=== PATIENT | female | born 1995 | race Caucasian/White ===

== ENCOUNTER 2019-01-07 20:11 | Observation (INO) | payer OTHER ==
[2019-01-07 20:43] LABS: Appearance CLOUDY (CLEAR); Bacteria FEW /HPF (NEGATIVE); Bilirubin NEGATIVE (NEGATIVE); Blood SMALL Ery/ul (0-5); Epithelial Cells MODERATE /HPF (FEW); Glucose NEGATIVE (NEGATIVE); Ketones NEGATIVE (NEGATIVE); Leukocyte Esterase LARGE (NEGATIVE); Mucus SLIGHT /HPF (NEGATIVE); Nitrite NEGATIVE (NEGATIVE); Protein,Urine Dip 30 (Negative); RBC 26-50 /HPF (0-2); Specific Gravity 1.018 (1.005-1.025); Urobilinogen 2 mg/dL (0-1); WBC 51-100 /HPF (0-5)
[2019-01-07 20:54] LABS: Amphetamine,Urine NEGATIVE (NEGATIVE); Barbiturate,Urine NEGATIVE (NEGATIVE); Benzodiazepine,Urine NEGATIVE (NEGATIVE); Cocaine,Urine NEGATIVE (NEGATIVE); Methadone,Urine NEGATIVE (NEGATIVE); Opiate,Urine NEGATIVE (NEGATIVE); PCP,Urine NEGATIVE (NEGATIVE); THC,Urine NEGATIVE (NEGATIVE)
[2019-01-07] MEDS ORDERED: Lactated Ringers 1,000 ML IV ONE (22:23)
[2019-01-07] MEDS ORDERED: ROCEPHIN 1 Gm-D5w 50 ml Bag** 1 G/50 ML IVPB IV ONE (22:27)
[2019-01-07] MEDS: CLINDAMYCIN-D5W 600 MG/50 ML*** 600 MG/50 ML BAG IV SCH (22:51)
[2019-01-07 22:54] LABS: Hematocrit 31.2 % (35-47); Hemoglobin 9.7 gm/dl (12.0-16.0); Mean Cell Volume 80.2 fl (78-100); Mean Corpuscular Hemoglobin 24.9 pg (26-32); Mean Corpuscular Hgb Concent. 31.1 g/dl (32-36); Mean Platelet Volume 9.7 fl (6-9.5); Platelet Count 244 K/mm3 (150-450); Red Blood Count 3.89 M/mm3 (4.1-5.4); Red Cell Distribution Width 16.3 % (11.5-14.0); White Blood Count 10.3 K/mm3 (4.0-10.5)
[2019-01-07 23:46] LABS: ABO TYPING A; Antibody Screen NEGATIVE (NEGATIVE); RH TYPING POSITIVE
[2019-01-07 23:48] LABS: ALBUMIN 3.7 g/dL (3.5-5.0); ALKALINE PHOSPHATASE 116 U/L (38-126); ANION GAP 15.1 MEQ/L (5-15); BLOOD UREA NITROGEN 8 mg/dL (7-17); CHLORIDE 108 mmol/L (98-107); Carbon Dioxide 18 mmol/L (22-30); Creatinine 1 0.51 mg/dL (0.52-1.04); Glucose 102 mg/dL (74-106); Potassium 3.6 mmol/L (3.5-5.1); SGOT/AST 15 U/L (14-36); SGPT/ALT 13 U/L (0-35); SODIUM 137 mmol/L (137-145); Total Protein 6.7 g/dL (6.3-8.2)
[2019-01-08] MEDS: Lactated Ringers 1,000 ML IV SCH ×2 (00:10→11:45)
[2019-01-08] MEDS: TYLENOL 325 MG PO PRN ×3 (00:16→14:35)
[2019-01-08 01:04] LABS: Basophil 1 % (0.0-1.0); Eosinophil 3 % (0.00-3.0); Lymphocytes 20 % (24-44); Monocyte 3 % (0.0-12.0); Neutrophils 73 % (36.0-66.0); Total Cells Counted 100
[2019-01-08 01:05] LABS: ANISOCYTOSIS 2+; Platelet Estimate NORMAL (NORMAL); Poikilocytosis 1+
[2019-01-08] MEDS: CLINDAMYCIN-D5W 600 MG/50 ML*** 600 MG/50 ML BAG IV SCH ×2 (04:56→10:48)
[2019-01-08 05:21] LABS: CHLAMYDIA URINE NEGATIVE; GC URINE NEGATIVE
[2019-01-08] MEDS ORDERED: ROCEPHIN 1 Gm-D5w 50 ml Bag** 1 G/50 ML IVPB IV SCH (10:00)
[2019-01-08 11:30] VITALS: O2SAT 99
[2019-01-08 17:52] VITALS: BP 110/55; PULSE 95
--- NOTE | 2019-01-09 00:16 | XRAY ---
Indication: Bilateral leg pain. 34 weeks . Two-dimensional sonogram and color Doppler imaging of the major venous vessels of the left and right leg was performed. Comparison: None No thrombus seen in the examined deep venous vessels of the left and right leg including greater saphenous veins. Veins demonstrate normal compressibility. Venous waveforms are normal with and without augmentation. Impression: Left and right legs negative for DVT. Comment: Preliminary report was given.
[2019-01-10 13:05] LABS: Immune Status: Equivocal
[2019-01-11 14:07] LABS: RPR Screen Non Reactive (Non Reactive)
== END 2019-01-08 17:25 | disposition home or self-care (01) ==
LOC: UNDOADMOB 20:11 → OB 20:11 → UNDODISOB 01-08 17:25
PROVIDERS: ADMIT Family Medicine; ATTEND Family Medicine
DX: O98.913 Unspecified maternal infectious and parasitic disease complicating pregnancy, third trimester (principal); Z3A.34 34 weeks gestation of pregnancy; M79.662 Pain in left lower leg; M79.661 Pain in right lower leg
CPT/HCPCS: 36415; 80053; 80307; 81001; 82550; 84443; 85025; 86592; 86593; 86701; 86702; 86762; 86780; 86803; 86850; 86900; 86901; 87086; 87340; 87389; 87491; 87591; 93970; G0378; J0696; A9270-GY

== ENCOUNTER 2019-01-18 12:02 | Observation (INO) | payer OTHER ==
[2019-01-18 12:50] VITALS: BP 107/60; PULSE 66
[2019-01-18] MEDS ORDERED: Adacel Vial IM ONE (13:00)
--- NOTE | 2019-01-18 14:02 | XRAY ---
Indication: care. Two-dimensional OB ultrasound performed. Comparison: None There is a single viable intrauterine currently in cephalic presentation. Normal four-chamber heart with heart rate 133 BPM. Normal three-vessel cord and cord insertion. Visualized stomach, kidneys, and bladder unremarkable. Anterior placenta without abruption/previa. BPD measures 8.87 cm corresponding to 35 weeks 6 days. HC measures 31.68 cm corresponding to 35 weeks 4 days. AC measures 32.04 cm corresponding to 36 weeks 0 days. FL measures 6.84 cm corresponding to 35 weeks 1 day. JULIA is 11.3 cm. Impression: Single viable intrauterine with mean gestational age 35 weeks 5 days. Expected date confinement is February 17, 2019.
== END 2019-01-18 14:20 | disposition home or self-care (01) ==
LOC: OB 12:02
PROVIDERS: ADMIT Family Medicine; ATTEND Family Medicine
DX: Z34.83 Encounter for supervision of other normal pregnancy, third trimester (principal)
CPT/HCPCS: 59025; 76805; G0378; 90715

== ENCOUNTER 2019-01-28 15:37 | Observation (INO) | payer OTHER ==
[2019-01-28 16:33] LABS: Amphetamine,Urine NEGATIVE (NEGATIVE); Barbiturate,Urine NEGATIVE (NEGATIVE); Benzodiazepine,Urine NEGATIVE (NEGATIVE); Cocaine,Urine NEGATIVE (NEGATIVE); Methadone,Urine NEGATIVE (NEGATIVE); Opiate,Urine NEGATIVE (NEGATIVE); PCP,Urine NEGATIVE (NEGATIVE); THC,Urine NEGATIVE (NEGATIVE)
[2019-01-28 16:37] LABS: Appearance CLOUDY (CLEAR); Bacteria RARE /HPF (NEGATIVE); Bilirubin NEGATIVE (NEGATIVE); Blood NEGATIVE Ery/ul (0-5); Crystals Unidentified 25-50 /HPF (NEGATIVE); Epithelial Cells RARE /HPF (FEW); Glucose NEGATIVE (NEGATIVE); Ketones NEGATIVE (NEGATIVE); Leukocyte Esterase LARGE (NEGATIVE); Mucus SLIGHT /HPF (NEGATIVE); Nitrite NEGATIVE (NEGATIVE); Protein,Urine Dip NEGATIVE (Negative); RBC 0-2 /HPF (0-2); Specific Gravity 1.012 (1.005-1.025); Urobilinogen 2 mg/dL (0-1); WBC 26-50 /HPF (0-5)
[2019-01-28 18:19] VITALS: BP 116/59; PULSE 94
== END 2019-01-28 17:55 | disposition home or self-care (01) ==
LOC: OB 15:37
PROVIDERS: ADMIT Family Medicine; ATTEND Family Medicine
DX: Z34.83 Encounter for supervision of other normal pregnancy, third trimester (principal)
CPT/HCPCS: 80307; 81001; 87086; G0378

== ENCOUNTER 2019-02-07 16:10 | Observation (INO) | payer OTHER ==
[2019-02-07 16:49] VITALS: BP 111/71; PULSE 79
[2019-02-07 18:01] LABS: Amphetamine,Urine NEGATIVE (NEGATIVE); Barbiturate,Urine NEGATIVE (NEGATIVE); Benzodiazepine,Urine NEGATIVE (NEGATIVE); Cocaine,Urine NEGATIVE (NEGATIVE); Methadone,Urine NEGATIVE (NEGATIVE); Opiate,Urine NEGATIVE (NEGATIVE); PCP,Urine NEGATIVE (NEGATIVE); THC,Urine NEGATIVE (NEGATIVE)
== END 2019-02-07 17:20 | disposition home or self-care (01) ==
LOC: OB 16:10
PROVIDERS: ADMIT Family Medicine; ATTEND Family Medicine
DX: Z34.83 Encounter for supervision of other normal pregnancy, third trimester (principal)
CPT/HCPCS: 80307; 83986; G0378

== ENCOUNTER 2019-02-10 14:20 | Inpatient (IN) | payer OTHER ==
[2019-02-10 18:07] LABS: BASOPHIL % 0.3 % (0.0-0.4); Basophil (Absolute #) 0.02 (0-0.4); Eosinophil % 1.8 % (0.00-5.0); Eosinophil (Absolute #) 0.14 (0-0.5); Granulocyte Absolute (ANC) 5.76 (1.4-6.9); Granulocytes % 74.7 % (36.0-66.0); Hematocrit 30.6 % (35-47); Hemoglobin 9.2 gm/dl (12.0-16.0); Lymphocyte (Absolute #) 1.19 (1.0-4.6); Lymphocytes % 15.4 % (24.0-44.0); Mean Cell Volume 79.3 fl (78-100); Mean Corpuscular Hemoglobin 23.8 pg (26-32); Mean Corpuscular Hgb Concent. 30.1 g/dl (32-36); Mean Platelet Volume 9.3 fl (6-9.5); Monocytes % 7.8 % (0.0-12.0); Platelet Count 217 K/mm3 (150-450); Red Blood Count 3.86 M/mm3 (4.1-5.4); Red Cell Distribution Width 19.4 % (11.5-14.0); White Blood Count 7.7 K/mm3 (4.0-10.5)
[2019-02-10 21:45] LABS: ALBUMIN 3.4 g/dL (3.5-5.0); BLOOD UREA NITROGEN 8.2 mg/dL (7-17); CHLORIDE 107 mmol/L (98-107); Calcium 8.4 mg/dL (8.4-10.2); Glucose 79 mg/dL (74-106); SODIUM 137 mmol/L (137-145); Total Protein 5.9 g/dL (6.3-8.2)
[2019-02-10 21:46] LABS: ALKALINE PHOSPHATASE 137 U/L (38-126); ANION GAP 13 MEQ/L (5-15); BILIRUBIN,TOTAL 0.47 mg/dL (0.2-1.3); SGOT/AST 23 U/L (14-36); SGPT/ALT 9 U/L (0-35)
[2019-02-10] MEDS ORDERED: BRETHINE 1 MG/ML SQ PRN (22:35)
[2019-02-10] MEDS ORDERED: TYLENOL EXTRA STRENGTH 500 MG PO PRN (22:36)
[2019-02-10] MEDS ORDERED: XYLOCAINE 1% HCL 20 ML MDV IJ PRN (22:36)
[2019-02-10] MEDS ORDERED: Zofran 4 MG/2 ML VIAL IV PRN (22:36)
[2019-02-10] MEDS: Lactated Ringers 1,000 ML IV SCH (23:47)
[2019-02-11 11:16] LABS: Amphetamine,Urine NEGATIVE (NEGATIVE); Barbiturate,Urine NEGATIVE (NEGATIVE); Benzodiazepine,Urine NEGATIVE (NEGATIVE); Cocaine,Urine NEGATIVE (NEGATIVE); Methadone,Urine NEGATIVE (NEGATIVE); Opiate,Urine NEGATIVE (NEGATIVE); PCP,Urine NEGATIVE (NEGATIVE); THC,Urine NEGATIVE (NEGATIVE)
[2019-02-11] MEDS: PITOCIN 30 UNITS/ LR 500 ML 500 ML IV SCH (12:27)
[2019-02-11] MEDS: Lactated Ringers 1,000 ML IV SCH ×2 (12:27→20:10)
[2019-02-11] MEDS ORDERED: Cervidil 10 MG VAG SCH (22:00)
[2019-02-11] MEDS: KEFLEX 500 MG PO SCH (22:17)
[2019-02-12] MEDS ORDERED: FERROUS SULFATE 324 MG PO SCH (10:00)
[2019-02-12] MEDS ORDERED: NON-FORMULARY ITEM (Pnv No.103/Folic/Om3s/Fish Oil [Prenatal Gummies] 1 TAB) PO SCH (10:00)
[2019-02-12] MEDS: KEFLEX 500 MG PO SCH (11:54)
[2019-02-12] MEDS: PITOCIN 30 UNITS/ LR 500 ML 500 ML IV SCH (12:09)
[2019-02-12] MEDS: FEOSOL 325 MG PO SCH (12:21)
[2019-02-12] MEDS: THERAGRAN MULTIVITAMIN PO SCH (12:21)
[2019-02-12] MEDS ORDERED: Ephedrine Sulfate 50 MG/ML IV PRN (14:57)
[2019-02-12] MEDS ORDERED: OB EPIDURAL NAROPIN/SUFENTANIL IN NACL EPIDURAL PRN (14:57)
[2019-02-12] MEDS ORDERED: Lactated Ringers 1,000 ML IV ONE (14:57)
[2019-02-12 15:13] LABS: Hematocrit 31.7 % (35-47); Hemoglobin 9.6 gm/dl (12.0-16.0); Mean Cell Volume 78.9 fl (78-100); Mean Corpuscular Hemoglobin 23.8 pg (26-32); Mean Corpuscular Hgb Concent. 30.3 g/dl (32-36); Mean Platelet Volume 9.1 fl (6-9.5); Platelet Count 211 K/mm3 (150-450); Red Blood Count 4.02 M/mm3 (4.1-5.4); Red Cell Distribution Width 19.6 % (11.5-14.0)
[2019-02-12] MEDS ORDERED: Mylicon 80MG PO PRN (17:13)
[2019-02-12] MEDS ORDERED: Ambien 10 MG PO PRN (17:13)
[2019-02-12] MEDS ORDERED: Dulcolax 10 MG SUPP PR PRN (17:13)
[2019-02-12] MEDS ORDERED: TYLENOL EXTRA STRENGTH 500 MG PO PRN (17:13)
[2019-02-12] MEDS ORDERED: Anucort-HC SUPPOSITORY PR PRN (17:13)
[2019-02-12] MEDS ORDERED: CORTISONE 1% CREAM TP PRN (17:13)
[2019-02-12] MEDS ORDERED: LANSINOH 40 GM TOP PRN (17:13)
[2019-02-12] MEDS ORDERED: ROCEPHIN 1 Gm-D5w 50 ml Bag** 1 G/50 ML IVPB IV SCH (18:00)
[2019-02-12] MEDS: MOTRIN 400 MG PO PRN (18:10)
[2019-02-12] MEDS ORDERED: Dermoplast Spray ONE (22:04)
[2019-02-12] MEDS: TUCKS TP PRN (22:10)
[2019-02-12] MEDS: Dermoplast Spray TP PRN (22:10)
[2019-02-12] MEDS: NORCO 5/325 MG PO PRN (22:21)
[2019-02-12] MEDS: Colace 100 MG PO SCH (22:21)
[2019-02-12] MEDS: Lactated Ringers 1,000 ML IV SCH (23:39)
[2019-02-13] MEDS: MOTRIN 400 MG PO PRN (01:10)
[2019-02-13] MEDS: NORCO 5/325 MG PO PRN ×4 (02:20→21:09)
[2019-02-13 06:05] LABS: INR 0.97 (0.8-3.0); PROTIME 11.3 SECONDS (9.95-12.35)
[2019-02-13 06:08] LABS: PTT 23.7 SECONDS (25.3-37.0)
[2019-02-13 06:11] LABS: BASOPHIL % 0.2 % (0.0-0.4); Basophil (Absolute #) 0.02 (0-0.4); Eosinophil % 1.3 % (0.00-5.0); Eosinophil (Absolute #) 0.14 (0-0.5); Granulocyte Absolute (ANC) 7.63 (1.4-6.9); Granulocytes % 70.5 % (36.0-66.0); Hemoglobin 8.3 gm/dl (12.0-16.0); Lymphocyte (Absolute #) 2.17 (1.0-4.6); Mean Cell Volume 78.9 fl (78-100); Mean Corpuscular Hgb Concent. 29.6 g/dl (32-36); Mean Platelet Volume 9.7 fl (6-9.5); Monocyte (Absolute #) 0.87 (0.0-1.3); Platelet Count 217 K/mm3 (150-450); Red Blood Count 3.55 M/mm3 (4.1-5.4); Red Cell Distribution Width 19.3 % (11.5-14.0); White Blood Count 10.8 K/mm3 (4.0-10.5)
[2019-02-13 06:15] LABS: Mean Corpuscular Hemoglobin 23.3 pg (26-32)
[2019-02-13] MEDS ORDERED: Reglan 10 MG/2 ML IV ONE (07:30)
[2019-02-13] MEDS ORDERED: Pepcid 20 MG VIAL IV ONE (07:30)
[2019-02-13] MEDS ORDERED: Sensorcaine 0.25% 10 ML ONE (07:51)
[2019-02-13] MEDS ORDERED: Lactated Ringers 1,000 ML IV ONE (07:51)
[2019-02-13] MEDS: BICITRA 30 ML CUP PO ONE ×2 (07:55→08:19)
[2019-02-13] MEDS ORDERED: Adacel Vial IM ONE (08:00)
[2019-02-13] MEDS ORDERED: M-M-R II Vaccine With Diluent SQ ONE (09:00)
[2019-02-13] MEDS ORDERED: Zofran 4 MG/2 ML VIAL ONE (09:14)
[2019-02-13] MEDS ORDERED: SUBLIMAZE 100 MCG/2 ML ONE (09:14)
[2019-02-13] MEDS ORDERED: FERREX 150 PO SCH (10:00)
[2019-02-13] MEDS: Colace 100 MG PO SCH ×2 (13:56→21:09)
[2019-02-13] MEDS: FEOSOL 325 MG PO SCH (13:56)
[2019-02-13] MEDS: THERAGRAN MULTIVITAMIN PO SCH (13:57)
[2019-02-13] MEDS: Dermoplast Spray TP PRN (21:05)
[2019-02-13] MEDS: KEFLEX 500 MG PO SCH ×2 (21:56→21:57)
[2019-02-14] MEDS: NORCO 5/325 MG PO PRN ×2 (01:28→06:00)
--- NOTE | 2019-02-14 07:38 | PCM.DS ---
Discharge Summary Date of Admission: 02/12/19 14:20 Admitting Physician: TAIWO GUZMAN Consults: Consults on Case 02/12/19 17:15 Notify Physician ROUTINE Primary Care Provider: TAIWO GUZMAN Allergies Allergies avocado Allergy (Verified 02/10/19 17:40) coconut Allergy (Verified 02/10/19 17:40) latex Allergy (Verified 02/10/19 17:40) mushroom Allergy (Verified 02/10/19 17:40) Penicillins Allergy (Verified 02/10/19 17:40) Hospital Summary - Hospital Course Hospital Course: Pt was admitted as 23 yo at 38w 3d for induction of labor. She was late to care at approx 32 weeks. Urine drug screens have been negative. She had a history of post- hemorrhage and Hgb of 9.3 - when her u/s last week showed EFW of 9lb 4oz, the decision was made by me to send for induction of labor due to increased risk of PP hemorrhage with macrosomia. Pt received cervadil overnight then pitocin the next day, with no real cervical change. the next night she received 2 doses of cervical cytotec then started pitocin; after that I was able to rupture the amniotic sac and she progressed quickly, delivering vaginally within the next 3 hours. She delivered a vigorous 8lb 12oz baby boy (for full details, see my delivery note). The next morning pt had a tubal ligation with Dr. Joseph. Pt has recovered well. Breast feeding. She will be discharged to home with her baby at 48h PP. - Vitals & Intake/Output Vital Signs: Vital Signs Temperature 97.7 F 02/14/19 02:00 Pulse Rate 80 02/14/19 02:00 Respiratory Rate 18 02/13/19 12:15 Blood Pressure 119/69 02/14/19 02:00 O2 Sat by Pulse Oximetry Intake & Output: Intake & Output 02/11/19 02/12/19 02/13/19 02/14/19 11:59 11:59 11:59 11:59 Intake Total 1250 3975 5700 800 Balance 1250 3975 5700 800 Weight 65.771 kg 78.471 kg - Lab Result Diagrams: 02/13/19 05:10 02/10/19 18:03 Discharge Exam General Appearance: no apparent distress, alert Neurologic Exam: oriented x 3, cooperative, other (pat refl 2+ bilat) Skin Exam: normal color, warm, dry, No rash Ears, Nose, Throat Exam: moist mucous membranes Neck Exam: normal inspection Respiratory Exam: normal breath sounds, lungs clear, No crackles/rales, No rhonchi, No wheezing Cardiovascular Exam: regular rate/rhythm, normal heart sounds Gastrointestinal/Abdomen Exam: soft, normal bowel sounds, No tenderness, No distention, No mass, No guarding, No rebound Extremity Exam: normal inspection, pedal edema (trace) Back Exam: normal inspection, No rash Final Diagnosis/Problem List - Final Discharge Diagnosis/Problem (1) Status post vaginal delivery Current Visit: Yes Status: Acute Assessment & Plan: Home today at 48h pp. (2) Anemia Current Visit: Yes Status: Acute Assessment & Plan: resume home Fe Code(s): D64.9 - ANEMIA, UNSPECIFIED - Discharge Disposition: Home, Self-Care Condition: Good Prescriptions: New Cephalexin Mh 500 mg [Keflex 500 mg] 500 mg PO QID capsule Hydrocodone/APAP 5-325 Tab^^^ [Whitney 5-325 Tablet^^^] 1 tab PO Q6HPRN PRN # 30 tablet MDD 6 PRN Reason: Pain Continue Pnv No.103/Folic/Om3s/Fish Oil [ Gummies] 1 tab PO DAILY Ferrous Sulfate 324 mg PO DAILY Follow up with: TAIWO GUZMAN [Primary Care Provider] - 1 Week
[2019-02-14] MEDS: KEFLEX 500 MG PO SCH (09:52)
[2019-02-14] MEDS: Colace 100 MG PO SCH (09:52)
[2019-02-14] MEDS: THERAGRAN MULTIVITAMIN PO SCH (09:52)
[2019-02-14] MEDS: FEOSOL 325 MG PO SCH (09:52)
--- NOTE | 2019-02-14 09:53 | OP ---
SURGERY DATE: 02/13/2019818 PREOPERATIVE DIAGNOSIS: Undesired fertility. POSTOPERATIVE DIAGNOSIS: Undesired fertility. PROCEDURE: Bilateral tubal ligation by partial salpingectomy. SURGEON: Dr. Joseph. ANESTHESIA: General. ESTIMATED BLOOD LOSS: Minimal. HISTORY: The patient is a 23 year-old 4, now para 4 white female who desires to have permanent sterilization procedure performed. She was appraised the risk of the procedure including risk of wound infection, bleeding and the failure rate of the tubal procedure of 1:300. The patient verbalized her understanding and desired to have the procedure performed. DESCRIPTION OF PROCEDURE AND FINDINGS: The patient was given general anesthesia. She was prepped and draped in supine position. The area was anesthetized using local anesthetic. An incision was made in supraumbilical area in horizontal fashion to approximately 1 inch in length. The incision was carried down to the fascia which was then elevated with Debbie clamp and divided. The peritoneal cavity was then bluntly entered. The right fallopian tube was identified and elevated in its mid portion with Daylin clamp and carried out to its fimbriated end. A hemostat is passed through an avascular section of the mesosalpinx and tube is tied on either side of the elevated area. The interceding section was then excised. The exposed edge of the tube cauterized using Bovie. The left tube is similarly treated. The fascia is then repaired using 0 Vicryl suture in a running fashion. The skin edges were reapproximated with 4-0 Vicryl suture in subcuticular fashion and reinforced with Steri-Strips. The sponge, needle and instrument counts were reported as correct at the end of the procedure. The patient is taken back to the recovery room in good condition.
[2019-02-14] MEDS: TUCKS TP PRN (10:41)
[2019-02-14] MEDS ORDERED: TORAdol 30 mg Injection IJ ONE (11:24)
[2019-02-14] MEDS ORDERED: Zofran 4 MG/2 ML VIAL IV ONE (11:24)
[2019-02-14] MEDS ORDERED: Quelicin Fliptop 200 MG/10 ML IJ ONE (11:24)
[2019-02-14] MEDS ORDERED: Decadron 4 MG INJ IV ONE (11:24)
[2019-02-14] MEDS ORDERED: DIPRIVAN 200 MG/20 ML IV ONE (11:24)
[2019-02-14] MEDS ORDERED: SUBLIMAZE 100 MCG/2 ML IV ONE (11:24)
[2019-02-14 11:50] VITALS: BP 111/64; PULSE 84
== END 2019-02-14 11:25 | disposition home or self-care (01) | DRG 798 ==
LOC: OB 14:20 → EEVIPCON 17:06 → OB 17:06 → OBSVTOIN 02-12 14:20
PROVIDERS: ADMIT Family Medicine; ATTEND Family Medicine
PROC: 10E0XZZ Delivery of Products of Conception, External Approach (ICD-10-PCS; principal; 2019-02-12)
PROC: 0UB70ZZ Excision of Bilateral Fallopian Tubes, Open Approach (ICD-10-PCS; 2019-02-13)
DX: O71.4 Obstetric high vaginal laceration alone (principal); Z37.0 Single live birth; O99.02 Anemia complicating childbirth; O69.81X0 Labor and delivery complicated by cord around neck, without compression, not applicable or unspecified; O66.0 Obstructed labor due to shoulder dystocia; Z3A.38 38 weeks gestation of pregnancy; Z30.2 Encounter for sterilization
CPT/HCPCS: 36415; 59025; 76805; 80053; 80307; 82962; 83036; 85025; 85027; 85610; 85730; 87081; 88302; 90707; 90715; 96372; G0378; J0330; J0696; J1100; J1885; J2405; J2590; J2704; J3010; A9270-GY

== ENCOUNTER 2019-04-29 12:31 | Emergency (ER) | payer OTHER ==
[2019-04-29 12:53] VITALS: BP 120/71; PULSE 74; O2SAT 98
--- NOTE | 2019-04-29 13:06 | ERPHSYRPT ---
- History of Present Illness Time Seen by Provider: 04/29/19 12:50 Source: patient Exam Limitations: clinical condition Patient Subjective Stated Complaint: pain to the top of her left hadn x 2 weeks. no known injury. hurts to use her hand. Triage Nursing Assessment: in no distress. pain to top of the left hand x 2 weeks. no known injury. + radial pulse present. no swelling noted. states hurts to use the hand. denies palmar pain. Physician History: PATIENT COMPLAINS OF PAIN OVER THE BACK OF HIS LEFT HAND FOR 2 WEEKS. DENIES HISTORY OF TRAUMA OR INJURY. HAS LEFT WRIST PAIN AFTER LIFTING FURNITURE LAST WEEK. DENIES FALL, INJURY OR TRAUMA. DENIES NUMBNESS, SWELLING OF HAND, WRIST OR DIGITS. Occurred: other (WEEKS AGO) Method of Injury: other Quality: constant, sharpness Severity of Pain-Max: mild Severity of Pain-Current: mild Extremities Pain Location: wrist: left, hand: left Modifying Factors: Improves With: movement Associated Symptoms: none Allergies/Adverse Reactions: avocado Allergy (Verified 02/10/19 17:40) coconut Allergy (Verified 02/10/19 17:40) latex Allergy (Verified 02/10/19 17:40) mushroom Allergy (Verified 02/10/19 17:40) Penicillins Allergy (Verified 02/10/19 17:40) Home Medications: Pnv No.103/Folic/Om3s/Fish Oil [ Gummies] 1 tab PO DAILY 01/07/19 [ History] Ferrous Sulfate 324 mg PO DAILY 01/28/19 [History] - Review of Systems Constitutional: No Symptoms Musculoskeletal: Joint Pain - Past Medical History Pertinent Past Medical History: Yes Neurological History: No Pertinent History ENT History: No Pertinent History Cardiac History: No Pertinent History Respiratory History: No Pertinent History Endocrine Medical History: No Pertinent History Musculoskeletal History: No Pertinent History GI Medical History: No Pertinent History History: No Pertinent History Psycho-Social History: No Pertinent History Female Reproductive Disorders: No Pertinent History - Past Surgical History Past Surgical History: Yes (appe) Neuro Surgical History: No Pertinent History Cardiac: No Pertinent History Respiratory: No Pertinent History Gastrointestinal: Appendectomy Genitourinary: No Pertinent History Musculoskeletal: No Pertinent History Female Surgical History: No Pertinent History - Social History Smoking Status: Never smoker How long have you smoked: on and off Exposure to second hand smoke: No Drug Use: none Patient Lives Alone: No - Female History Hx Now: No - Nursing Vital Signs Nursing Vital Signs: Initial Vital Signs Temperature 97.8 F 04/29/19 12:43 Pulse Rate 74 04/29/19 12:43 Respiratory Rate 18 04/29/19 12:43 Blood Pressure 120/71 04/29/19 12:43 O2 Sat by Pulse Oximetry 98 04/29/19 12:43 Pain Scale Pain Intensity 5 - Physical Exam General Appearance: no apparent distress Wrist Exam: normal inspection, limited ROM (DUE TO ULNAR AND RADIAL DEVIATION, NO SWELLING OR WARMTH) Hand Exam: normal inspection, normal ROM (OF DIGITS, TENDERNESS OVER MID TO DISTAL 3RD TO 4TH METACARPALS, NO SWELLING, CREPITUS OR ECCHYMOSIS), abrasions SpO2 Interpretation: normal SpO2: 98 Ordered Tests: Active Orders 24 hr Category Date Time Status Splint STAT Care 04/29/19 12:59 Ordered - Progress Progress Note: 04/29/19 13:06 DISCUSSED WITH PATIENT NO INDICATION FOR X-RAYS DUE TO NO HISTORY OF TRAUMA, APPLICATION LEFT WRIST VELCRO SPLINT Counseled pt/family regarding: diagnosis, need for follow-up - Departure Departure Disposition: Home Clinical Impression: TENDONITIS LEFT WRIST Condition: Stable Critical Care Time: No Referrals: TAIWO GUZMAN [Primary Care Provider] - Additional Instructions: WEAR VELCRO LEFT WRIST SPLINT FOR 7 DAYS THEN DISCONTINUE. MAY REMOVE SPLINT FOR BATHING. MOTRIN 600MG EVERY 6 HOURS FOR PAIN NEEDED. CONSULT YOUR PRIMARY CARE PROVIDER FOR FOLLOWUP. Prescriptions: Ibuprofen 600 mg PO Q6HPRN PRN #20 tablet PRN Reason: Pain
== END 2019-04-29 13:41 | disposition home or self-care (01) ==
LOC: ED 12:31
DX: M77.9 Enthesopathy, unspecified (principal); M25.532 Pain in left wrist; M79.642 Pain in left hand; X50.0XXA Overexertion from strenuous movement or load, initial encounter
CPT/HCPCS: 99283; L3908

== ENCOUNTER 2019-11-14 14:51 | Emergency (ER) | payer OTHER ==
[2019-11-14] MEDS ORDERED: KEFLEX 500 MG PO ONE (15:03)
[2019-11-14] MEDS ORDERED: KEFLEX 500 MG ONE (15:07)
--- NOTE | 2019-11-14 15:09 | ERPHSYRPT ---
- History of Present Illness Time Seen by Provider: 11/14/19 15:00 Source: patient Exam Limitations: no limitations Physician History: 24 y/o white female presents with right upper dental pain and mild facial swelling in same area. pt has chronic dental issues. pt states she does not have much pain. she does not want any narcotics. pt has taken keflex(cephalexin ) in the past without any problems. Timing/Duration: intermittent, yesterday Severity: mild Prearrival Treatment: no prearrival treatment Associated Symptoms: facial pain/swelling (mild ), tooth pain Allergies/Adverse Reactions: avocado Allergy (Verified 11/14/19 14:59) coconut Allergy (Verified 11/14/19 14:59) latex Allergy (Verified 11/14/19 14:59) mushroom Allergy (Verified 11/14/19 14:59) Penicillins Allergy (Verified 11/14/19 14:59) Home Medications: PARoxetine HCl [Paroxetine HCl] 10 mg PO DAILY 11/14/19 [History] - Review of Systems Constitutional: No Symptoms Eyes: No Symptoms Ears, Nose, & Throat: Other (dental) Respiratory: No Symptoms Cardiac: No Symptoms Abdominal/Gastrointestinal: No Symptoms Genitourinary Symptoms: No Symptoms Musculoskeletal: No Symptoms Skin: No Symptoms Neurological: No Symptoms Psychological: No Symptoms Endocrine: No Symptoms Hematologic/Lymphatic: No Symptoms Immunological/Allergic: No Symptoms All Other Systems: Reviewed and Negative - Past Medical History Pertinent Past Medical History: Yes Neurological History: No Pertinent History ENT History: No Pertinent History Cardiac History: No Pertinent History Respiratory History: No Pertinent History Endocrine Medical History: No Pertinent History Musculoskeletal History: No Pertinent History GI Medical History: No Pertinent History History: No Pertinent History Psycho-Social History: No Pertinent History Female Reproductive Disorders: No Pertinent History - Past Surgical History Past Surgical History: Yes (appe) Neuro Surgical History: No Pertinent History Cardiac: No Pertinent History Respiratory: No Pertinent History Gastrointestinal: Appendectomy Genitourinary: No Pertinent History Musculoskeletal: No Pertinent History Female Surgical History: No Pertinent History - Social History Smoking Status: Never smoker How long have you smoked: on and off Exposure to second hand smoke: No Drug Use: none Patient Lives Alone: No - Physical Exam General Appearance: no apparent distress, alert, anxiety Eye Exam: bilateral eye: normal inspection, PERRL, EOMI Ear Exam: bilateral ear: auricle normal Nasal Exam: normal inspection Throat Exam: normal, pharynx normal, dental tenderness, moist mucus membranes Neck Exam: normal inspection, non-tender, supple, full range of motion Cardiovascular/Respiratory Exam: chest non-tender Abdominal Exam: non-tender Neurologic Exam: alert, oriented x 3, cooperative, cork insulator II-XII nml as tested Skin Exam: normal color, warm, dry SpO2 Interpretation: normal O2 Delivery: Room Air - Course Nursing assessment & vital signs reviewed: Yes Ordered Tests: Medication Summary Generic Name Dose Route Start Last Admin Trade Name Freq PRN Reason Stop Dose Admin Cephalexin HCl 500 mg 11/14/19 15:03 Keflex 500 Mg PO 11/14/19 15:04 STAT ONE - Progress Progress: unchanged Counseled pt/family regarding: diagnosis, need for follow-up - Departure Departure Disposition: Home Clinical Impression: Pain, dental Condition: Stable Critical Care Time: No Referrals: TAIWO GUZMAN [Primary Care Provider] - Additional Instructions: tylenol and ibuprofen for pain. follow up with dentist at scheduled appointment Prescriptions: Cephalexin Mh 500 mg [Keflex 500 mg] 500 mg PO TID #21 capsule
[2019-11-14 15:30] VITALS: BP 99/64; PULSE 76; O2SAT 98
== END 2019-11-14 15:31 | disposition home or self-care (01) ==
LOC: ED 14:51
DX: K08.89 Other specified disorders of teeth and supporting structures (principal)
CPT/HCPCS: 99283; A9270-GY

== ENCOUNTER 2020-05-31 10:03 | Emergency (ER) | payer OTHER ==
[2020-05-31] MEDS ORDERED: Sodium Chloride 0.9% 1000 ML 1,000 ML IV STA (10:23)
[2020-05-31 10:31] LABS: BASOPHIL % 0.5 % (0.0-0.4); Basophil (Absolute #) 0.03 (0-0.4); Eosinophil % 2.9 % (0.00-5.0); Eosinophil (Absolute #) 0.17 (0-0.5); Hematocrit 35.1 % (35-47); Hemoglobin 11.2 gm/dl (12.0-16.0); Lymphocyte (Absolute #) 2.18 (1.0-4.6); Lymphocytes % 37.7 % (24.0-44.0); Mean Cell Volume 83.2 fl (78-100); Mean Corpuscular Hemoglobin 26.5 pg (26-32); Mean Corpuscular Hgb Concent. 31.9 g/dl (32-36); Mean Platelet Volume 10.2 fl (7.5-11.0); Monocyte (Absolute #) 0.61 (0.0-1.3); Monocytes % 10.5 % (0.0-12.0); Neutrophil % 48.4 % (36.0-66.0); Platelet Count 245 K/mm3 (150-450); Red Blood Count 4.22 M/mm3 (4.1-5.4); White Blood Count 5.8 K/mm3 (4.0-10.5)
[2020-05-31] MEDS ORDERED: Sodium Chloride 0.9% 1000 ML 1,000 ML ONE (10:31)
[2020-05-31 10:46] LABS: ALKALINE PHOSPHATASE 48 U/L (38-126); ANION GAP 11.6 MEQ/L (5-15); BLOOD UREA NITROGEN 10 mg/dL (7-17); CHLORIDE 107 mmol/L (98-107); Calcium 8.7 mg/dL (8.4-10.2); Carbon Dioxide 23 mmol/L (22-30); Creatinine 1 0.81 mg/dL (0.52-1.04); Glucose 107 mg/dL (74-106); Potassium 3.7 mmol/L (3.5-5.1); SGOT/AST 18 U/L (14-36); SGPT/ALT 12 U/L (0-35); SODIUM 138 mmol/L (137-145); Total Protein 6.6 g/dL (6.3-8.2)
[2020-05-31 10:54] LABS: Appearance SLIGHTLY CLOUDY (CLEAR); Bacteria RARE /HPF (NEGATIVE); Bilirubin NEGATIVE (NEGATIVE); Blood NEGATIVE Ery/ul (0-5); Epithelial Cells RARE /HPF (FEW); Glucose NEGATIVE (NEGATIVE); Ketones NEGATIVE (NEGATIVE); Leukocyte Esterase LARGE (NEGATIVE); Mucus SLIGHT /HPF (NEGATIVE); Nitrite NEGATIVE (NEGATIVE); Protein,Urine Dip NEGATIVE (Negative); RBC 0-2 /HPF (0-2); Specific Gravity 1.005 (1.005-1.025); Urobilinogen NEGATIVE mg/dL (0-1)
[2020-05-31 11:15] VITALS: PULSE 62
--- NOTE | 2020-05-31 11:22 | XRAY ---
Indication: Lightheaded. Syncope. Comparison: October 13, 2019. Portable chest again demonstrates normal heart, lungs, and bony thorax.
--- NOTE | 2020-05-31 12:00 | ERPHSYRPT ---
- History of Present Illness Time Seen by Provider: 05/31/20 10:18 Source: patient Exam Limitations: no limitations Patient Subjective Stated Complaint: pt reports passing out at home approx one hour [employer]. pt reprots she has passed out before due to her anemia. pt denies in juring herself, denies pain at this time. pt states that she has been working a lot more lately and thinks that may be a contributing factor. Triage Nursing Assessment: pt is aox3, pupils perrl, afebrile, resps easy and non labored, cap refill < 3 seconds, radial pulses strong and equal, pt skin pink warm dry. pt ambulatory to trt room with no difficulties. Physician History: 25 years old female with history of anemia on iron tablets presented in the ER with chief complaint of near syncopal episode almost an hour prior to arrival. Patient reports she was working at home while standing, felt all of a sudden lightheaded with feeling as if she was going to pass out and falling, her grabbed her with loss of consciousness for a few seconds. No seizure- like activity noticed. Improved with lying down. Since patient denies any chest pain palpitations or shortness of breath, numbness tingling or weakness before or after the episode. She is complaining of generalized weakness and fatigue. No fever or chills reported. Patient reports she has been working too much lately which could be contributing to her symptoms. Timing/Duration: today, sudden, improved Severity: mild Associated Symptoms: denies symptoms, syncope, weakness Allergies/Adverse Reactions: avocado Allergy (Verified 05/31/20 10:23) coconut Allergy (Verified 05/31/20 10:23) latex Allergy (Verified 05/31/20 10:25) Hives mushroom Allergy (Verified 05/31/20 10:23) Penicillins Allergy (Verified 05/31/20 10:25) Vomiting Home Medications: Iron 18 mg PO DAILY 05/31/20 [History] Hx Tetanus, Diphtheria Vaccination/Date Given: Yes Hx Influenza Vaccination/Date Given: Yes Hx Pneumococcal Vaccination/Date Given: No Immunizations Up to Date: Yes Travel Risk - International Travel Have you traveled outside of the country in past 3 weeks: No - Coronavirus Screening Are you exhibiting any of the following symptoms?: No Close contact with a COVID-19 positive Pt in past 14-21 Days: No - Review of Systems Constitutional: Fatigue, Weakness Eyes: No Symptoms Ears, Nose, & Throat: No Symptoms Respiratory: No Symptoms Cardiac: No Symptoms Abdominal/Gastrointestinal: No Symptoms Genitourinary Symptoms: No Symptoms Musculoskeletal: No Symptoms Skin: No Symptoms Neurological: Dizziness Psychological: Anxiety Endocrine: No Symptoms Hematologic/Lymphatic: No Symptoms Immunological/Allergic: No Symptoms - Past Medical History Pertinent Past Medical History: Yes Neurological History: No Pertinent History ENT History: No Pertinent History Cardiac History: No Pertinent History Respiratory History: No Pertinent History Endocrine Medical History: No Pertinent History Musculoskeletal History: No Pertinent History GI Medical History: No Pertinent History History: No Pertinent History Psycho-Social History: No Pertinent History Female Reproductive Disorders: No Pertinent History Other Medical History: anemia - Past Surgical History Past Surgical History: Yes Neuro Surgical History: No Pertinent History Cardiac: No Pertinent History Respiratory: No Pertinent History Gastrointestinal: Appendectomy Genitourinary: No Pertinent History Musculoskeletal: No Pertinent History Female Surgical History: No Pertinent History, Tubal Ligation - Social History Smoking Status: Current every day smoker How long have you smoked: on and off Exposure to second hand smoke: No Drug Use: none Patient Lives Alone: No - Female History Hx Last Menstrual Period: 05/24/20 Hx Now: (unkn) - Nursing Vital Signs Nursing Vital Signs: Initial Vital Signs Temperature 97.8 F 05/31/20 10:13 Pulse Rate 81 05/31/20 10:13 Respiratory Rate 18 05/31/20 10:13 Blood Pressure 116/68 05/31/20 10:13 O2 Sat by Pulse Oximetry 99 05/31/20 10:13 Pain Scale Pain Intensity 0 - Physical Exam General Appearance: no apparent distress Eye Exam: PERRL/EOMI, eyes nml inspection Ears, Nose, Throat Exam: normal ENT inspection, TMs normal, pharynx normal Neck Exam: normal inspection, non-tender, supple, full range of motion Respiratory Exam: normal breath sounds, lungs clear Cardiovascular Exam: regular rate/rhythm, normal heart sounds Gastrointestinal/Abdomen Exam: soft, normal bowel sounds, No tenderness Extremity Exam: normal inspection, normal range of motion, pelvis stable Neurologic Exam: alert, oriented x 3, cooperative, 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, nml cerebellar function, nml station & gait, sensation nml, No motor weakness Skin Exam: normal color SpO2 Interpretation: normal SpO2: 97 O2 Delivery: Room Air - Course Nursing assessment & vital signs reviewed: Yes EKG Interpreted by Me: RATE (75), Sinus Rhythm, NORMAL AXIS, NORMAL INTERVALS, NORMAL QRS Ordered Tests: Active Orders 24 hr Category Date Time Status EKG-ER Only STAT Care 05/31/20 10:23 Completed IV Insertion STAT Care 05/31/20 10:23 Completed Orthostatic Vital Signs STAT Care 05/31/20 10:25 Completed CHEST 1 VIEW (PORTABLE) Stat Exams 05/31/20 10:24 Completed CBC W DIFF Stat Lab 05/31/20 10:29 Completed CMP Stat Lab 05/31/20 10:29 Completed HCG,QUALITATIVE URINE Stat Lab 05/31/20 10:30 Completed TROPONIN Q3H Lab 05/31/20 10:29 Completed TROPONIN Q3H Lab 05/31/20 13:30 Ordered TROPONIN Q3H Lab 05/31/20 16:30 Ordered TROPONIN Q3H Lab 05/31/20 19:30 Ordered TROPONIN Q3H Lab 05/31/20 22:30 Ordered UA W/RFX UR CULTURE Stat Lab 05/31/20 10:30 Completed Medication Summary Discontinued Medications Generic Name Dose Route Start Last Admin Trade Name Freq PRN Reason Stop Dose Admin Sodium Chloride 1,000 mls @ 999 mls/hr 05/31/20 10:23 05/31/20 12:06 Sodium Chloride 0.9% 1000 Ml IV 05/31/20 11:23 Infused .Q1H1M STA Infusion Sodium Chloride Confirm 05/31/20 10:31 Sodium Chloride 0.9% 1000 Ml Administered 05/31/20 10:32 Dose 1,000 mls @ ud .ROUTE .[facility] Lab/Rad Data: Laboratory Result Diagrams 05/31/20 10:29 05/31/20 10:29 Laboratory Results 05/31/20 05/31/20 05/31/20 Range/Units 10:30 10:30 10:29 WBC (4.0-10.5) K/mm3 RBC (4.1-5.4) M/mm3 Hgb (12.0-16.0) gm/dl Hct (35-47) % MCV (78-100) fl MCH (26-32) pg MCHC (32-36) g/dl RDW (11.5-14.0) % Plt Count (150-450) K/mm3 MPV (7.5-11.0) fl Gran % (36.0-66.0) % Eos # (Auto) (0-0.5) Absolute Lymphs (auto) (1.0-4.6) Absolute Monos (auto) (0.0-1.3) Lymphocytes % (24.0-44.0) % Monocytes % (0.0-12.0) % Eosinophils % (0.00-5.0) % Basophils % (0.0-0.4) % Absolute Granulocytes (1.4-6.9) Basophils # (0-0.4) Sodium (137-145) mmol/L Potassium (3.5-5.1) mmol/L Chloride (98-107) mmol/L Carbon Dioxide (22-30) mmol/L Anion Gap (5-15) MEQ/L BUN (7-17) mg/dL Creatinine (0.52-1.04) mg/dL Estimated GFR ML/MIN Glucose (74-106) mg/dL Calcium (8.4-10.2) mg/dL Total Bilirubin (0.2-1.3) mg/dL AST (14-36) U/L ALT (0-35) U/L Alkaline Phosphatase (38-126) U/L Troponin I < 0.012 (0.000-0.034) ng/mL Serum Total Protein (6.3-8.2) g/dL Albumin (3.5-5.0) g/dL Urine Color YELLOW (YELLOW) Urine Appearance SLIGHTLY CLOUDY (CLEAR) Urine pH 6.0 (5-6) Ur Specific [place] 1.005 (1.005-1.025) Urine Protein NEGATIVE (Negative) Urine Ketones NEGATIVE (NEGATIVE) Urine Blood NEGATIVE (0-5) Ghulam/ul Urine Nitrite NEGATIVE (NEGATIVE) Urine Bilirubin NEGATIVE (NEGATIVE) Urine Urobilinogen NEGATIVE (0-1) mg/dL Ur Leukocyte Esterase LARGE (NEGATIVE) Urine WBC (Auto) 3-5 (0-5) /HPF Urine RBC (Auto) 0-2 (0-2) /HPF U Epithel Cells (Auto) RARE (FEW) /HPF Urine Bacteria (Auto) RARE (NEGATIVE) /HPF Urine Mucus (Auto) SLIGHT (NEGATIVE) /HPF Urine Culture Reflexed NO (NO) Urine Glucose NEGATIVE (NEGATIVE) mg/dL Urine HCG, Qual NEGATIVE (Negative) 05/31/20 05/31/20 Range/Units 10:29 10:29 WBC 5.8 (4.0-10.5) K/mm3 RBC 4.22 (4.1-5.4) M/mm3 Hgb 11.2 L (12.0-16.0) gm/dl Hct 35.1 (35-47) % MCV 83.2 (78-100) fl MCH 26.5 (26-32) pg MCHC 31.9 L (32-36) g/dl RDW 15.0 H (11.5-14.0) % Plt Count 245 (150-450) K/mm3 MPV 10.2 (7.5-11.0) fl Gran % 48.4 (36.0-66.0) % Eos # (Auto) 0.17 (0-0.5) Absolute Lymphs (auto) 2.18 (1.0-4.6) Absolute Monos (auto) 0.61 (0.0-1.3) Lymphocytes % 37.7 (24.0-44.0) % Monocytes % 10.5 (0.0-12.0) % Eosinophils % 2.9 (0.00-5.0) % Basophils % 0.5 (0.0-0.4) % Absolute Granulocytes 2.80 (1.4-6.9) Basophils # 0.03 (0-0.4) Sodium 138 (137-145) mmol/L Potassium 3.7 (3.5-5.1) mmol/L Chloride 107 (98-107) mmol/L Carbon Dioxide 23 (22-30) mmol/L Anion Gap 11.6 (5-15) MEQ/L BUN 10 (7-17) mg/dL Creatinine 0.81 (0.52-1.04) mg/dL Estimated GFR > 60.0 ML/MIN Glucose 107 H (74-106) mg/dL Calcium 8.7 (8.4-10.2) mg/dL Total Bilirubin 0.60 (0.2-1.3) mg/dL AST 18 (14-36) U/L ALT 12 (0-35) U/L Alkaline Phosphatase 48 (38-126) U/L Troponin I (0.000-0.034) ng/mL Serum Total Protein 6.6 (6.3-8.2) g/dL Albumin 4.0 (3.5-5.0) g/dL Urine Color (YELLOW) Urine Appearance (CLEAR) Urine pH (5-6) Ur Specific [place] (1.005-1.025) Urine Protein (Negative) Urine Ketones (NEGATIVE) Urine Blood (0-5) Ghulam/ul Urine Nitrite (NEGATIVE) Urine Bilirubin (NEGATIVE) Urine Urobilinogen (0-1) mg/dL Ur Leukocyte Esterase (NEGATIVE) Urine WBC (Auto) (0-5) /HPF Urine RBC (Auto) (0-2) /HPF U Epithel Cells (Auto) (FEW) /HPF Urine Bacteria (Auto) (NEGATIVE) /HPF Urine Mucus (Auto) (NEGATIVE) /HPF Urine Culture Reflexed (NO) Urine Glucose (NEGATIVE) mg/dL Urine HCG, Qual (Negative) - Progress Progress: improved, re-examined Progress Note: She was given fluid bolus. Nonfocal neuro exam throughout stay in the ER. Symptoms seem more secondary to posture related lightheadedness/near syncopal episode. Do not think needs a CT head or any other neuro work-up. EKG normal sinus rhythm with no acute ischemic changes or arrhythmia/PVCs/PACs. Grossly unremarkable chemistries. Hemoglobin of 11. Patient feeling better on reevaluation after fluid. I do not think she needs further work-up in the ER and is stable for discharge with outpatient follow-up. Discussed signs symptoms of worsening needing return to ER she seems understanding. Counseled pt/family regarding: lab results, diagnosis, need for follow-up, rad results - Departure Departure Disposition: Home Clinical Impression: Postural dizziness with near syncope, Generalized weakness Condition: Stable Critical Care Time: No Referrals: TAIWO GUZMAN [Primary Care Provider] - (1-2 days for reevaluation.) Instructions: Syncope (Fainting) (DC) Additional Instructions: Drink plenty of fluids. Follow-up with your primary care physician for reevaluation. Return to ER for any worsening.
[2020-05-31 12:07] VITALS: BP 118/67
[2020-05-31 12:21] VITALS: O2SAT 97
== END 2020-05-31 12:08 | disposition home or self-care (01) ==
LOC: ED 10:03
DX: R42 Dizziness and giddiness (principal); R55 Syncope and collapse; R53.1 Weakness
CPT/HCPCS: 36000; 36415; 71045; 80053; 81001; 84484; 84703; 85025; 93005; 96360; 99284

== ENCOUNTER 2021-08-14 15:30 | Observation (INO) | payer OTHER ==
--- NOTE | 2021-08-14 15:31 | ERPHSYRPT ---
- History of Present Illness Time Seen by Provider: 08/14/21 15:31 Source: patient Exam Limitations: no limitations Physician History: This is a 26-year-old white female who states that she was feeling fine 3 days ago. However 2 days ago she began having a cough, mild sore throat, mild shortness of breath body aches, vomiting and diarrhea. The symptoms have worsened over the last 2 days. She is not taking much oral intake per her report. She does not have chest pain. She does not have abdominal pain. Patient has not knowingly been exposed anyone with any type of viral illness or other type of contagious illness. She has not measured her temperature at home but she has at times felt feverish. Timing/Duration: day(s) (2), worse Severity: moderate Associated Symptoms: vomiting, shortness of breath, cough, chills, fever, headaches, loss of appetite, weakness, No abdominal pain, No chest pain Allergies/Adverse Reactions: avocado Allergy (Verified 08/14/21 16:04) coconut Allergy (Verified 08/14/21 16:04) latex Allergy (Verified 08/14/21 16:04) Hives mushroom Allergy (Verified 08/14/21 16:04) Penicillins Allergy (Verified 08/14/21 16:04) Vomiting Hx Tetanus, Diphtheria Vaccination/Date Given: Yes Hx Influenza Vaccination/Date Given: Yes Hx Pneumococcal Vaccination/Date Given: No Travel Risk - International Travel Have you traveled outside of the country in past 3 weeks: No - Coronavirus Screening Are you exhibiting any of the following symptoms?: Yes Symptoms: Fever, Cough: New Onset, Shortness of Breath, Vomiting/Diarrhea, Head aches/Body Aches/Fatigue Close contact with a COVID-19 positive Pt in past 14-21 Days: No - Review of Systems Constitutional: Fever, Weakness Eyes: No Symptoms Ears, Nose, & Throat: Throat Pain Respiratory: Cough, Dyspnea Cardiac: No Symptoms Abdominal/Gastrointestinal: Nausea, Vomiting, Diarrhea, Appetite Changes, No Abdominal Pain Genitourinary Symptoms: No Symptoms Musculoskeletal: Arthralgias, Myalgias Skin: No Symptoms Neurological: No Symptoms Psychological: No Symptoms Endocrine: No Symptoms Hematologic/Lymphatic: No Symptoms Immunological/Allergic: No Symptoms All Other Systems: Reviewed and Negative - Past Medical History Pertinent Past Medical History: Yes Neurological History: No Pertinent History ENT History: No Pertinent History Cardiac History: No Pertinent History Respiratory History: No Pertinent History Endocrine Medical History: No Pertinent History Musculoskeletal History: No Pertinent History GI Medical History: No Pertinent History History: No Pertinent History Psycho-Social History: No Pertinent History Female Reproductive Disorders: No Pertinent History Other Medical History: anemia - Past Surgical History Past Surgical History: Yes Neuro Surgical History: No Pertinent History Cardiac: No Pertinent History Respiratory: No Pertinent History Gastrointestinal: Appendectomy Genitourinary: No Pertinent History Musculoskeletal: No Pertinent History Female Surgical History: No Pertinent History, Tubal Ligation - Social History Smoking Status: Current every day smoker How long have you smoked: on and off Exposure to second hand smoke: No Drug Use: none Patient Lives Alone: No - Nursing Vital Signs Nursing Vital Signs: Initial Vital Signs Temperature 99.9 F 08/14/21 15:48 Pulse Rate 115 H 08/14/21 15:48 Respiratory Rate 16 08/14/21 15:48 Blood Pressure 114/77 08/14/21 15:48 O2 Sat by Pulse Oximetry 98 08/14/21 15:48 Pain Scale Pain Intensity 6 - Physical Exam General Appearance: mild distress, alert, anxiety Eye Exam: PERRL/EOMI, eyes nml inspection Ears, Nose, Throat Exam: normal ENT inspection, moist mucous membranes Neck Exam: normal inspection, non-tender, supple, full range of motion Respiratory Exam: normal breath sounds, lungs clear, respiratory distress, airway intact, No chest tenderness Cardiovascular Exam: normal peripheral pulses, tachycardia Gastrointestinal/Abdomen Exam: soft, normal bowel sounds, No tenderness Pelvic Exam: not done Rectal Exam: not done Back Exam: normal inspection, normal range of motion, No CVA tenderness, No vertebral tenderness Extremity Exam: normal inspection, normal range of motion, pelvis stable Neurologic Exam: alert, oriented x 3, cooperative, emergency department technician II-XII nml as tested, normal mood/affect, nml cerebellar function, nml station & gait, sensation nml Skin Exam: normal color, warm, dry Lymphatic Exam: No adenopathy SpO2 Interpretation: normal O2 Delivery: Room Air - Course Nursing assessment & vital signs reviewed: Yes EKG Interpreted by Me: RATE (101), Sinus Tach, NORMAL AXIS, NORMAL INTERVALS, NORMAL QRS, NORMAL ST-T, Other (No acute ischemic changes on today's EKG. There is new sinus tachycardia present on today's EKG when compared to EKG dated 05/31/2020.) Ordered Tests: Active Orders 24 hr Category Date Time Status EKG-ER Only STAT Care 08/14/21 15:54 Active IV Insertion STAT Care 08/14/21 15:54 Active Isolation, Initiate & Maintain STAT Care 08/14/21 15:54 Active CHEST 1 VIEW (PORTABLE) Stat Exams 08/14/21 15:54 Completed CHEST WITH CONTRAST [CT] Stat Exams 08/14/21 17:34 Taken BLOOD CULTURE Stat Lab 08/14/21 16:20 Received CBC W DIFF Stat Lab 08/14/21 15:54 Completed CMP Stat Lab 08/14/21 16:11 Completed CULTURE,URINE Stat Lab 08/14/21 18:24 Received D-DIMER QUANTITATIVE Stat Lab 08/14/21 16:11 Completed Ferritin Stat Lab 08/14/21 16:11 Completed HCG,QUALITATIVE URINE Stat Lab 08/14/21 16:18 Completed INFLUENZA A+B DEL Stat Lab 08/14/21 16:18 Completed LDH-LACTATE DEHYDROGENASE Stat Lab 08/14/21 16:11 Completed Lactic Acid Stat Lab 08/14/21 16:11 Completed Manual Differential NC Stat Lab 08/14/21 15:54 Completed [place] Screen Stat Lab 08/14/21 16:11 Completed TROPONIN Q3H Lab 08/14/21 16:11 Completed TROPONIN Q3H Lab 08/14/21 19:00 Ordered TROPONIN Q3H Lab 08/14/21 22:00 Ordered TROPONIN Q3H Lab 08/15/21 01:00 Ordered TROPONIN Q3H Lab 08/15/21 04:00 Ordered UA W/RFX UR CULTURE Stat Lab 08/14/21 18:24 Completed Transfer Order Routine Transfer 08/14/21 Ordered Medication Summary Generic Name Dose Route Start Last Admin Trade Name Freq PRN Reason Stop Dose Admin Levofloxacin/Dextrose 500 mg in 100 mls @ 100 mls/hr 08/14/21 18:45 08/14/21 18:49 Levofloxacin 500mg/100ml D5w IV 08/14/21 19:44 100 mls/hr STAT ONE Administration Sodium Chloride 1,000 mls @ 100 mls/hr 08/14/21 19:15 08/14/21 19:09 Sodium Chloride 0.9% 1000 Ml IV 09/13/21 19:14 100 mls/hr .Q10H RADHA Administration Discontinued Medications Generic Name Dose Route Start Last Admin Trade Name Bel PRN Reason Stop Dose Admin Hydrocodone Bitart/Acetaminophen 10 ml 08/14/21 15:56 08/14/21 16:33 Hydrocodone-Acetamin 2.5-108/5 Ml Solution PO 08/14/21 15:57 10 ml STAT STA Administration Hydrocodone Bitart/Acetaminophen Confirm 08/14/21 16:28 Hydrocodone-Acetamin 2.5-108/5 Ml Solution Administered 08/14/21 16:29 Dose 10 ml .ROUTE .STK-MED ONE Dexamethasone Sodium Phosphate 8 mg 08/14/21 15:56 08/14/21 16:33 Decadron 10mg Inj. IV 08/14/21 15:57 8 mg STAT ONE Administration Dexamethasone Sodium Phosphate Confirm 08/14/21 16:28 Decadron 10mg Inj. Administered 08/14/21 16:29 Dose 10 mg .ROUTE .STK-MED ONE Sodium Chloride 1,000 mls @ 999 mls/hr 08/14/21 15:54 08/14/21 17:36 Sodium Chloride 0.9% 1000 Ml IV 08/14/21 16:54 Infused .Q1H1M STA Infusion Sodium Chloride Confirm 08/14/21 16:28 Sodium Chloride 0.9% 1000 Ml Administered 08/14/21 16:29 Dose 1,000 mls @ ud .ROUTE .STK-MED ONE Sodium Chloride 1,000 mls @ 999 mls/hr 08/14/21 17:35 08/14/21 18:41 Sodium Chloride 0.9% 1000 Ml IV 08/14/21 18:35 Infused .Q1H1M STA Infusion Sodium Chloride Confirm 08/14/21 17:38 Sodium Chloride 0.9% 1000 Ml Administered 08/14/21 17:39 Dose 1,000 mls @ ud .ROUTE .STK-MED ONE Levofloxacin/Dextrose Confirm 08/14/21 18:47 Levofloxacin 500mg/100ml D5w Administered 08/14/21 18:48 Dose 500 mg in 100 mls @ ud IV .STK-MED ONE Ondansetron HCl Confirm 08/14/21 16:28 Zofran 4 Mg/2 Ml Vial Administered 08/14/21 16:29 Dose 4 mg .ROUTE .STK-MED ONE Ondansetron HCl 4 mg 08/14/21 16:32 08/14/21 16:33 Zofran 4 Mg/2 Ml Vial IV 08/14/21 16:33 4 mg STAT ONE Administration Potassium Chloride 10 meq 08/14/21 17:34 08/14/21 17:40 Klor Con 10 Meq PO 08/14/21 17:35 10 meq STAT ONE Administration Potassium Chloride Confirm 08/14/21 17:38 Klor Con 10 Meq Administered 08/14/21 17:39 Dose 10 meq PO .STK-MED ONE Lab/Rad Data: Laboratory Result Diagrams 08/14/21 15:54 08/14/21 16:11 Laboratory Results 08/14/21 08/14/21 08/14/21 Range/Units 18:24 16:18 16:17 WBC (4.0-10.5) K/mm3 RBC (4.1-5.4) M/mm3 Hgb (12.0-16.0) gm/dl Hct (35-47) % MCV (78-100) fl MCH (26-32) pg MCHC (32-36) g/dl RDW (11.5-14.0) % Plt Count (150-450) K/mm3 MPV (7.5-11.0) fl Segmented Neutrophils (36.0-66.0) % Band Neutrophils (0.0-2.0) % Lymphocytes (Manual) (24-44) % Monocytes (Manual) (0.0-12.0) % Basophils (Manual) (0.0-1.0) % Hypochromia Platelet Estimate (NORMAL) RBC Morphology Poikilocytosis Ovalocytes D-Dimer (215-500) ng/mL Sodium (137-145) mmol/L Potassium (3.5-5.1) mmol/L Chloride (98-107) mmol/L Carbon Dioxide (22-30) mmol/L Anion Gap (5-15) MEQ/L BUN (7-17) mg/dL Creatinine (0.52-1.04) mg/dL Estimated GFR ML/MIN Glucose (74-106) mg/dL Lactic Acid (0.4-2.0) Calcium (8.4-10.2) mg/dL Ferritin (6.24-137) ng/mL Total Bilirubin (0.2-1.3) mg/dL AST (14-36) U/L ALT (0-35) U/L Alkaline Phosphatase (38-126) U/L Lactate Dehydrogenase (120-246) U/L Troponin I (0.000-0.034) ng/mL Serum Total Protein (6.3-8.2) g/dL Albumin (3.5-5.0) g/dL Urine Color YELLOW (YELLOW) Urine Appearance SLIGHTLY CLOUDY (CLEAR) Urine pH 6.0 (5-6) Ur Specific [place] 1.009 (1.005-1.025) Urine Protein 30 (Negative) Urine Ketones SMALL (NEGATIVE) Urine Blood SMALL (0-5) Ghulam/ul Urine Nitrite POSITIVE (NEGATIVE) Urine Bilirubin NEGATIVE (NEGATIVE) Urine Urobilinogen 2 (0-1) mg/dL Ur Leukocyte Esterase MODERATE (NEGATIVE) Urine WBC (Auto) 26-50 (0-5) /HPF Urine RBC (Auto) 0-2 (0-2) /HPF U Epithel Cells (Auto) RARE (FEW) /HPF Urine Bacteria (Auto) MANY (NEGATIVE) /HPF Urine Mucus (Auto) SLIGHT (NEGATIVE) /HPF Urine Culture Reflexed YES (NO) Urine Glucose NEGATIVE (NEGATIVE) mg/dL Urine HCG, Qual NEGATIVE (Negative) Monoscreen (Negative) Influenza Type A Ag NEGATIVE (NEGATIVE) Influenza Type B Ag NEGATIVE (NEGATIVE) Group A Strep Antibody NOT DETECTED (NEGATIVE) 08/14/21 08/14/21 08/14/21 Range/Units 16:11 16:11 16:11 WBC (4.0-10.5) K/mm3 RBC (4.1-5.4) M/mm3 Hgb (12.0-16.0) gm/dl Hct (35-47) % MCV (78-100) fl MCH (26-32) pg MCHC (32-36) g/dl RDW (11.5-14.0) % Plt Count (150-450) K/mm3 MPV (7.5-11.0) fl Segmented Neutrophils (36.0-66.0) % Band Neutrophils (0.0-2.0) % Lymphocytes (Manual) (24-44) % Monocytes (Manual) (0.0-12.0) % Basophils (Manual) (0.0-1.0) % Hypochromia Platelet Estimate (NORMAL) RBC Morphology Poikilocytosis Ovalocytes D-Dimer (215-500) ng/mL Sodium (137-145) mmol/L Potassium (3.5-5.1) mmol/L Chloride (98-107) mmol/L Carbon Dioxide (22-30) mmol/L Anion Gap (5-15) MEQ/L BUN (7-17) mg/dL Creatinine (0.52-1.04) mg/dL Estimated GFR ML/MIN Glucose (74-106) mg/dL Lactic Acid (0.4-2.0) Calcium (8.4-10.2) mg/dL Ferritin 40.8 (6.24-137) ng/mL Total Bilirubin (0.2-1.3) mg/dL AST (14-36) U/L ALT (0-35) U/L Alkaline Phosphatase (38-126) U/L Lactate Dehydrogenase (120-246) U/L Troponin I < 0.012 (0.000-0.034) ng/mL Serum Total Protein (6.3-8.2) g/dL Albumin (3.5-5.0) g/dL Urine Color (YELLOW) Urine Appearance (CLEAR) Urine pH (5-6) Ur Specific [place] (1.005-1.025) Urine Protein (Negative) Urine Ketones (NEGATIVE) Urine Blood (0-5) Ghulam/ul Urine Nitrite (NEGATIVE) Urine Bilirubin (NEGATIVE) Urine Urobilinogen (0-1) mg/dL Ur Leukocyte Esterase (NEGATIVE) Urine WBC (Auto) (0-5) /HPF Urine RBC (Auto) (0-2) /HPF U Epithel Cells (Auto) (FEW) /HPF Urine Bacteria (Auto) (NEGATIVE) /HPF Urine Mucus (Auto) (NEGATIVE) /HPF Urine Culture Reflexed (NO) Urine Glucose (NEGATIVE) mg/dL Urine HCG, Qual (Negative) Monoscreen NEGATIVE (Negative) Influenza Type A Ag (NEGATIVE) Influenza Type B Ag (NEGATIVE) Group A Strep Antibody (NEGATIVE) 08/14/21 08/14/21 08/14/21 Range/Units 16:11 16:11 16:11 WBC (4.0-10.5) K/mm3 RBC (4.1-5.4) M/mm3 Hgb (12.0-16.0) gm/dl Hct (35-47) % MCV (78-100) fl MCH (26-32) pg MCHC (32-36) g/dl RDW (11.5-14.0) % Plt Count (150-450) K/mm3 MPV (7.5-11.0) fl Segmented Neutrophils (36.0-66.0) % Band Neutrophils (0.0-2.0) % Lymphocytes (Manual) (24-44) % Monocytes (Manual) (0.0-12.0) % Basophils (Manual) (0.0-1.0) % Hypochromia Platelet Estimate (NORMAL) RBC Morphology Poikilocytosis Ovalocytes D-Dimer 1863 H* (215-500) ng/mL Sodium 129 L (137-145) mmol/L Potassium 3.3 L (3.5-5.1) mmol/L Chloride 98 (98-107) mmol/L Carbon Dioxide 20 L (22-30) mmol/L Anion Gap 13.6 (5-15) MEQ/L BUN 13 (7-17) mg/dL Creatinine 0.89 (0.52-1.04) mg/dL Estimated GFR > 60.0 ML/MIN Glucose 105 (74-106) mg/dL Lactic Acid 0.8 (0.4-2.0) Calcium 8.8 (8.4-10.2) mg/dL Ferritin (6.24-137) ng/mL Total Bilirubin 1.10 (0.2-1.3) mg/dL AST 63 H (14-36) U/L ALT 54 H (0-35) U/L Alkaline Phosphatase 81 (38-126) U/L Lactate Dehydrogenase 183 (120-246) U/L Troponin I (0.000-0.034) ng/mL Serum Total Protein 6.9 (6.3-8.2) g/dL Albumin 4.0 (3.5-5.0) g/dL Urine Color (YELLOW) Urine Appearance (CLEAR) Urine pH (5-6) Ur Specific [place] (1.005-1.025) Urine Protein (Negative) Urine Ketones (NEGATIVE) Urine Blood (0-5) Ghulam/ul Urine Nitrite (NEGATIVE) Urine Bilirubin (NEGATIVE) Urine Urobilinogen (0-1) mg/dL Ur Leukocyte Esterase (NEGATIVE) Urine WBC (Auto) (0-5) /HPF Urine RBC (Auto) (0-2) /HPF U Epithel Cells (Auto) (FEW) /HPF Urine Bacteria (Auto) (NEGATIVE) /HPF Urine Mucus (Auto) (NEGATIVE) /HPF Urine Culture Reflexed (NO) Urine Glucose (NEGATIVE) mg/dL Urine HCG, Qual (Negative) Monoscreen (Negative) Influenza Type A Ag (NEGATIVE) Influenza Type B Ag (NEGATIVE) Group A Strep Antibody (NEGATIVE) 08/14/21 Range/Units 15:54 WBC 14.3 H (4.0-10.5) K/mm3 RBC 4.09 L (4.1-5.4) M/mm3 Hgb 8.2 L (12.0-16.0) gm/dl Hct 27.2 L (35-47) % MCV 66.5 L (78-100) fl MCH 20.0 L (26-32) pg MCHC 30.1 L (32-36) g/dl RDW 17.8 H (11.5-14.0) % Plt Count 209 (150-450) K/mm3 MPV 10.4 (7.5-11.0) fl Segmented Neutrophils 89 H (36.0-66.0) % Band Neutrophils 3 H (0.0-2.0) % Lymphocytes (Manual) 3 L (24-44) % Monocytes (Manual) 4 (0.0-12.0) % Basophils (Manual) 1 (0.0-1.0) % Hypochromia 1+ Platelet Estimate NORMAL (NORMAL) RBC Morphology ABNORMAL Poikilocytosis 2+ Ovalocytes 1+ D-Dimer (215-500) ng/mL Sodium (137-145) mmol/L Potassium (3.5-5.1) mmol/L Chloride (98-107) mmol/L Carbon Dioxide (22-30) mmol/L Anion Gap (5-15) MEQ/L BUN (7-17) mg/dL Creatinine (0.52-1.04) mg/dL Estimated GFR ML/MIN Glucose (74-106) mg/dL Lactic Acid (0.4-2.0) Calcium (8.4-10.2) mg/dL Ferritin (6.24-137) ng/mL Total Bilirubin (0.2-1.3) mg/dL AST (14-36) U/L ALT (0-35) U/L Alkaline Phosphatase (38-126) U/L Lactate Dehydrogenase (120-246) U/L Troponin I (0.000-0.034) ng/mL Serum Total Protein (6.3-8.2) g/dL Albumin (3.5-5.0) g/dL Urine Color (YELLOW) Urine Appearance (CLEAR) Urine pH (5-6) Ur Specific [place] (1.005-1.025) Urine Protein (Negative) Urine Ketones (NEGATIVE) Urine Blood (0-5) Ghulam/ul Urine Nitrite (NEGATIVE) Urine Bilirubin (NEGATIVE) Urine Urobilinogen (0-1) mg/dL Ur Leukocyte Esterase (NEGATIVE) Urine WBC (Auto) (0-5) /HPF Urine RBC (Auto) (0-2) /HPF U Epithel Cells (Auto) (FEW) /HPF Urine Bacteria (Auto) (NEGATIVE) /HPF Urine Mucus (Auto) (NEGATIVE) /HPF Urine Culture Reflexed (NO) Urine Glucose (NEGATIVE) mg/dL Urine HCG, Qual (Negative) Monoscreen (Negative) Influenza Type A Ag (NEGATIVE) Influenza Type B Ag (NEGATIVE) Group A Strep Antibody (NEGATIVE) - Progress Progress: improved Progress Note: 08/14/21 17:20 Chest x-ray shows no acute cardiopulmonary process. Discussed with : Ursula Counseled pt/family regarding: lab results, diagnosis, rad results - Departure Departure Disposition: Observation Clinical Impression: Weakness, Dizziness, Mild dehydration, Leukocytosis, Anemia, Hyponatremia, Hypokalemia, UTI (urinary tract infection) Condition: Stable Critical Care Time: No Referrals: TAIWO LANE [Primary Care Provider] -
[2021-08-14] MEDS ORDERED: Sodium Chloride 0.9% 1000 ML 1,000 ML IV STA ×2 (15:54→17:35)
[2021-08-14] MEDS ORDERED: DECADRON 10MG INJ. IV ONE (15:56)
[2021-08-14] MEDS ORDERED: HYDROCODONE-ACETAMIN 2.5-108/5 ML SOLUTION PO STA (15:56)
[2021-08-14 16:27] LABS: Hematocrit 27.2 % (35-47); Hemoglobin 8.2 gm/dl (12.0-16.0); Mean Cell Volume 66.5 fl (78-100); Mean Corpuscular Hgb Concent. 30.1 g/dl (32-36); Mean Platelet Volume 10.4 fl (7.5-11.0); Platelet Count 209 K/mm3 (150-450); Red Blood Count 4.09 M/mm3 (4.1-5.4); Red Cell Distribution Width 17.8 % (11.5-14.0); White Blood Count 14.3 K/mm3 (4.0-10.5)
[2021-08-14] MEDS ORDERED: HYDROCODONE-ACETAMIN 2.5-108/5 ML SOLUTION ONE (16:28)
[2021-08-14] MEDS ORDERED: DECADRON 10MG INJ. ONE (16:28)
[2021-08-14] MEDS ORDERED: Sodium Chloride 0.9% 1000 ML 1,000 ML ONE ×3 (16:28→19:08)
[2021-08-14] MEDS ORDERED: Zofran 4 MG/2 ML VIAL ONE (16:28)
[2021-08-14] MEDS ORDERED: Zofran 4 MG/2 ML VIAL IV ONE (16:32)
[2021-08-14 16:47] LABS: ALKALINE PHOSPHATASE 81 U/L (38-126); ANION GAP 13.6 MEQ/L (5-15); BLOOD UREA NITROGEN 13 mg/dL (7-17); CHLORIDE 98 mmol/L (98-107); Calcium 8.8 mg/dL (8.4-10.2); Carbon Dioxide 20 mmol/L (22-30); Creatinine 1 0.89 mg/dL (0.52-1.04); EST GLOMERULAR FILTRATION RATE > 60.0 ML/MIN; Glucose 105 mg/dL (74-106); LDH-LACTATE DEHYDROGENASE 183 U/L (120-246); Potassium 3.3 mmol/L (3.5-5.1); SGOT/AST 63 U/L (14-36); SGPT/ALT 54 U/L (0-35); SODIUM 129 mmol/L (137-145); Total Protein 6.9 g/dL (6.3-8.2)
[2021-08-14 17:07] LABS: INFLUENZA A NEGATIVE (NEGATIVE); INFLUENZA B NEGATIVE (NEGATIVE)
--- NOTE | 2021-08-14 17:09 | XRAY ---
Exam: AP upright portable chest film from 08/14/2021. Comparison: AP upright portable chest film from 05/31/2020. Indication: 26-year-old female with cough; fever. Findings: There has been a good inspiratory effort. The heart size is normal. The nathan and mediastinal structures appear unremarkable. No air space infiltrates or groundglass opacities are seen. The pulmonary vascularity is normal. No pneumothorax or pleural effusion is seen. No acute osseous process is seen. Impression: 1. No acute cardiopulmonary disease is seen, no change from 05/31/2020.
[2021-08-14] MEDS ORDERED: Klor Con 10 MEQ PO ONE ×2 (17:34→17:38)
[2021-08-14 17:57] LABS: BAND 3 % (0.0-2.0); Basophil 1 % (0.0-1.0); Lymphocytes 3 % (24-44); Monocyte 4 % (0.0-12.0); Neutrophils 89 % (36.0-66.0); Total Cells Counted 100
[2021-08-14 17:58] LABS: Ovalocytes 1+; Platelet Estimate NORMAL (NORMAL); Poikilocytosis 2+
[2021-08-14 17:59] LABS: Hypochromia 1+
[2021-08-14 18:35] LABS: HCG,QUALITATIVE URINE NEGATIVE (Negative)
[2021-08-14 18:38] LABS: Appearance SLIGHTLY CLOUDY (CLEAR); Bacteria MANY /HPF (NEGATIVE); Bilirubin NEGATIVE (NEGATIVE); Blood SMALL Ery/ul (0-5); Epithelial Cells RARE /HPF (FEW); Glucose NEGATIVE (NEGATIVE); Ketones SMALL (NEGATIVE); Leukocyte Esterase MODERATE (NEGATIVE); Mucus SLIGHT /HPF (NEGATIVE); Nitrite POSITIVE (NEGATIVE); Protein,Urine Dip 30 (Negative); RBC 0-2 /HPF (0-2); Specific Gravity 1.009 (1.005-1.025); Urobilinogen 2 mg/dL (0-1); WBC 26-50 /HPF (0-5)
[2021-08-14] MEDS ORDERED: Levofloxacin 500MG/100ML D5W 500 MG/100 ML BAG IV ONE ×2 (18:45→18:47)
[2021-08-14] MEDS ORDERED: Sodium Chloride 0.9% 1000 ML 1,000 ML IV SCH (19:15)
[2021-08-15] MEDS: TYLENOL 325 MG PO PRN ×2 (01:06→09:32)
[2021-08-15] MEDS: Sodium Chloride 0.9% 1000 ML 1,000 ML IV SCH ×3 (04:53→22:55)
[2021-08-15 05:28] LABS: Absolute Neutrophil Ct (ANC) 6.99 (1.4-6.9); BASOPHIL % 0.1 % (0.0-0.4); Basophil (Absolute #) 0.01 (0-0.4); Eosinophil (Absolute #) 0 (0-0.5); Hematocrit 25.8 % (35-47); Hemoglobin 7.7 gm/dl (12.0-16.0); Lymphocyte (Absolute #) 0.57 (1.0-4.6); Lymphocytes % 7.2 % (24.0-44.0); Mean Cell Volume 67.4 fl (78-100); Mean Corpuscular Hemoglobin 20.1 pg (26-32); Mean Corpuscular Hgb Concent. 29.8 g/dl (32-36); Monocyte (Absolute #) 0.32 (0.0-1.3); Monocytes % 4.1 % (0.0-12.0); Neutrophil % 88.6 % (36.0-66.0); Platelet Count 208 K/mm3 (150-450); Red Blood Count 3.83 M/mm3 (4.1-5.4); Red Cell Distribution Width 18.1 % (11.5-14.0); White Blood Count 7.9 K/mm3 (4.0-10.5)
[2021-08-15 05:59] LABS: ALBUMIN 3.6 g/dL (3.5-5.0); ALKALINE PHOSPHATASE 47 U/L (38-126); ANION GAP 12.3 MEQ/L (5-15); BLOOD UREA NITROGEN 14 mg/dL (7-17); CHLORIDE 108 mmol/L (98-107); Calcium 8.4 mg/dL (8.4-10.2); Carbon Dioxide 20 mmol/L (22-30); Creatinine 1 0.68 mg/dL (0.52-1.04); EST GLOMERULAR FILTRATION RATE > 60.0 ML/MIN; Glucose 121 mg/dL (74-106); Potassium 4.1 mmol/L (3.5-5.1); SGOT/AST 28 U/L (14-36); SGPT/ALT 41 U/L (0-35); SODIUM 136 mmol/L (137-145); Total Protein 6.5 g/dL (6.3-8.2)
[2021-08-15 06:54] LABS: Slide Review 1 YES
--- NOTE | 2021-08-15 08:57 | PCM.HP ---
History of Present Illness - Chief Complaint Chief Complaint: UTI History of Present Illness: is a 26 year old female pt of mine from [facility] who was admitted through ER with anemia and UTI. She had been sick for about a week with NUÑEZ, bilat lower leg pain, weakness/dizziness and question of syncope. She was driving back from [place] last week and had to stop x 3 and not sure if she fell asleep momentarily or passed out on those occasions, as she would find her phone on the floorboard of the car when she awoke. Three nights ago she went to the ER at [place] but says she only received a partial bag of fluids; they took blood and urine samples. She had fever that night to 102.7, and to 103 the following night. Her Tmax here has been 99.9. On admission her hgb was 8.2 - this morning it is 7.7 and she is c/o dizziness. Na was 129 on admission, but 136 this morning. Her d-dimer was quite elevated; CT chest was done but report is pending. UA + with nitrites and WBC. She states her NUÑEZ is abnormal for her - she sees visual changes and "dazes out." Her periods are q 4 wks and are quite heavy, she says she soaks 4 pads in 20 minutes. Her mono, flu, Group A strep, and Covid tests were negative, but she is being moved to a negative pressure room as she is symptomatic. - Review of Systems Constitutional: Fever, Chills, Fatigue, Weakness Eyes: Eye Pain (behind both eyes with NUÑEZ), Vision Changes Respiratory: Short Of Breath Abdominal/Gastrointestinal: Nausea, Vomiting, Diarrhea, Appetite Changes (hasn't eaten for 4 days) Genitourinary Symptoms: Vaginal Bleeding Musculoskeletal: Arthralgias, Back Pain, Neck Pain, Myalgias Neurological: Dizziness Medications & Allergies Home Medications: Home Medication List No Reportable Medications [No Reported Medications] 08/14/21 [History Confirmed 08/14/21] Allergies/Adverse Reactions: Allergies Allergy/AdvReac Type Severity Reaction Status Date / Time avocado Allergy Verified 08/14/21 16:04 coconut Allergy Verified 08/14/21 16:04 latex Allergy Hives Verified 08/14/21 16:04 mushroom Allergy Verified 08/14/21 16:04 Penicillins Allergy Vomiting Verified 08/14/21 16:04 - Past Medical History Past Medical History: Yes Neurological History: No Pertinent History ENT History: No Pertinent History Cardiac History: No Pertinent History Respiratory History: No Pertinent History Endocrine Medical History: No Pertinent History Musculoskelatal History: No Pertinent History GI Medical History: No Pertinent History History: No Pertinent History Pyscho-Social History: No Pertinent History Reproductive Disorders: No Pertinent History Comment: anemia - Female History Hx Last Menstrual Period: 3 weeks ago Are you now?: No - Past Surgical History Past Surgical History: Yes Neuro Surgical History: No Pertinent History Cardiac History: No Pertinent History Respiratory Surgery: No Pertinent History GI Surgical History: Appendectomy Genitourinary Surgical Hx: No Pertinent History Musculskeletal Surgical Hx: No Pertinent History Female Surgical History: No Pertinent History, Tubal Ligation - Social History Smoking Status: Never smoker How long have you smoked: on and off Exposure to second hand smoke: No Alcohol: None Drug Use: none - Physical Exam Vital Signs: Vital Signs - 24 hr Temp Pulse Resp BP Pulse Ox 08/15/21 08:00 97.0 F 58 L 12 89/50 98 08/15/21 04:00 17 08/15/21 03:48 98.4 F 62 17 91/52 97 08/15/21 00:00 18 08/14/21 21:24 98.0 F 77 18 99/55 98 08/14/21 21:15 98 08/14/21 20:00 76 16 97/56 99 08/14/21 19:06 88 16 102/65 99 08/14/21 18:24 90 18 101/59 97 08/14/21 17:32 88 16 105/62 97 08/14/21 16:33 105 H 114/70 98 08/14/21 15:54 20 98 08/14/21 15:48 99.9 F 115 H 16 114/77 98 General Appearance: no apparent distress, alert Neurologic Exam: oriented x 3, cooperative Eye Exam: eyes nml inspection Ears, Nose, Throat Exam: moist mucous membranes Neck Exam: normal inspection, non-tender, No lymphadenopathy Respiratory Exam: normal breath sounds, lungs clear, No crackles/rales, No rhonchi, No wheezing Cardiovascular Exam: regular rate/rhythm, normal heart sounds, No murmur Gastrointestinal/Abdomen Exam: soft, normal bowel sounds, No tenderness, No distention, No mass, No guarding, No rebound Back Exam: normal inspection, No CVA tenderness Extremity Exam: normal inspection, No pedal edema, No swelling Skin Exam: normal color, warm, dry, No rash Results - Labs Lab/Micro Results: Lab Results-Last 24 Hours 08/14/21 08/14/21 08/14/21 Range/Units 15:54 16:11 16:11 WBC 14.3 H (4.0-10.5) K/mm3 RBC 4.09 L (4.1-5.4) M/mm3 Hgb 8.2 L (12.0-16.0) gm/dl Hct 27.2 L (35-47) % MCV 66.5 L (78-100) fl MCH 20.0 L (26-32) pg MCHC 30.1 L (32-36) g/dl RDW 17.8 H (11.5-14.0) % Plt Count 209 (150-450) K/mm3 MPV 10.4 (7.5-11.0) fl Gran % (36.0-66.0) % Eos # (Auto) (0-0.5) Absolute Lymphs (auto) (1.0-4.6) Absolute Monos (auto) (0.0-1.3) Lymphocytes % (24.0-44.0) % Monocytes % (0.0-12.0) % Eosinophils % (0.00-5.0) % Basophils % (0.0-0.4) % Absolute Granulocytes (1.4-6.9) Segmented Neutrophils 89 H (36.0-66.0) % Band Neutrophils 3 H (0.0-2.0) % Lymphocytes (Manual) 3 L (24-44) % Monocytes (Manual) 4 (0.0-12.0) % Basophils (Manual) 1 (0.0-1.0) % Basophils # (0-0.4) Hypochromia 1+ Platelet Estimate NORMAL (NORMAL) RBC Morphology ABNORMAL Poikilocytosis 2+ Ovalocytes 1+ D-Dimer (215-500) ng/mL Sodium 129 L (137-145) mmol/L Potassium 3.3 L (3.5-5.1) mmol/L Chloride 98 (98-107) mmol/L Carbon Dioxide 20 L (22-30) mmol/L Anion Gap 13.6 (5-15) MEQ/L BUN 13 (7-17) mg/dL Creatinine 0.89 (0.52-1.04) mg/dL Estimated GFR > 60.0 ML/MIN Glucose 105 (74-106) mg/dL Lactic Acid 0.8 (0.4-2.0) Calcium 8.8 (8.4-10.2) mg/dL Ferritin (6.24-137) ng/mL Total Bilirubin 1.10 (0.2-1.3) mg/dL AST 63 H (14-36) U/L ALT 54 H (0-35) U/L Alkaline Phosphatase 81 (38-126) U/L Lactate Dehydrogenase 183 (120-246) U/L Troponin I (0.000-0.034) ng/mL Serum Total Protein 6.9 (6.3-8.2) g/dL Albumin 4.0 (3.5-5.0) g/dL Urine Color (YELLOW) Urine Appearance (CLEAR) Urine pH (5-6) Ur Specific [place] (1.005-1.025) Urine Protein (Negative) Urine Ketones (NEGATIVE) Urine Blood (0-5) Ghulam/ul Urine Nitrite (NEGATIVE) Urine Bilirubin (NEGATIVE) Urine Urobilinogen (0-1) mg/dL Ur Leukocyte Esterase (NEGATIVE) Urine WBC (Auto) (0-5) /HPF Urine RBC (Auto) (0-2) /HPF U Epithel Cells (Auto) (FEW) /HPF Urine Bacteria (Auto) (NEGATIVE) /HPF Urine Mucus (Auto) (NEGATIVE) /HPF Urine Culture Reflexed (NO) Urine Glucose (NEGATIVE) mg/dL Urine HCG, Qual (Negative) Monoscreen (Negative) Influenza Type A Ag (NEGATIVE) Influenza Type B Ag (NEGATIVE) SARS-CoV-2 (PCR) (NEGATIVE) Group A Strep Antibody (NEGATIVE) Slides for Path Review 08/14/21 08/14/21 08/14/21 Range/Units 16:11 16:11 16:11 WBC (4.0-10.5) K/mm3 RBC (4.1-5.4) M/mm3 Hgb (12.0-16.0) gm/dl Hct (35-47) % MCV (78-100) fl MCH (26-32) pg MCHC (32-36) g/dl RDW (11.5-14.0) % Plt Count (150-450) K/mm3 MPV (7.5-11.0) fl Gran % (36.0-66.0) % Eos # (Auto) (0-0.5) Absolute Lymphs (auto) (1.0-4.6) Absolute Monos (auto) (0.0-1.3) Lymphocytes % (24.0-44.0) % Monocytes % (0.0-12.0) % Eosinophils % (0.00-5.0) % Basophils % (0.0-0.4) % Absolute Granulocytes (1.4-6.9) Segmented Neutrophils (36.0-66.0) % Band Neutrophils (0.0-2.0) % Lymphocytes (Manual) (24-44) % Monocytes (Manual) (0.0-12.0) % Basophils (Manual) (0.0-1.0) % Basophils # (0-0.4) Hypochromia Platelet Estimate (NORMAL) RBC Morphology Poikilocytosis Ovalocytes D-Dimer 1863 H* (215-500) ng/mL Sodium (137-145) mmol/L Potassium (3.5-5.1) mmol/L Chloride (98-107) mmol/L Carbon Dioxide (22-30) mmol/L Anion Gap (5-15) MEQ/L BUN (7-17) mg/dL Creatinine (0.52-1.04) mg/dL Estimated GFR ML/MIN Glucose (74-106) mg/dL Lactic Acid (0.4-2.0) Calcium (8.4-10.2) mg/dL Ferritin 40.8 (6.24-137) ng/mL Total Bilirubin (0.2-1.3) mg/dL AST (14-36) U/L ALT (0-35) U/L Alkaline Phosphatase (38-126) U/L Lactate Dehydrogenase (120-246) U/L Troponin I < 0.012 (0.000-0.034) ng/mL Serum Total Protein (6.3-8.2) g/dL Albumin (3.5-5.0) g/dL Urine Color (YELLOW) Urine Appearance (CLEAR) Urine pH (5-6) Ur Specific [place] (1.005-1.025) Urine Protein (Negative) Urine Ketones (NEGATIVE) Urine Blood (0-5) Ghulam/ul Urine Nitrite (NEGATIVE) Urine Bilirubin (NEGATIVE) Urine Urobilinogen (0-1) mg/dL Ur Leukocyte Esterase (NEGATIVE) Urine WBC (Auto) (0-5) /HPF Urine RBC (Auto) (0-2) /HPF U Epithel Cells (Auto) (FEW) /HPF Urine Bacteria (Auto) (NEGATIVE) /HPF Urine Mucus (Auto) (NEGATIVE) /HPF Urine Culture Reflexed (NO) Urine Glucose (NEGATIVE) mg/dL Urine HCG, Qual (Negative) Monoscreen (Negative) Influenza Type A Ag (NEGATIVE) Influenza Type B Ag (NEGATIVE) SARS-CoV-2 (PCR) (NEGATIVE) Group A Strep Antibody (NEGATIVE) Slides for Path Review 08/14/21 08/14/21 08/14/21 Range/Units 16:11 16:17 16:18 WBC (4.0-10.5) K/mm3 RBC (4.1-5.4) M/mm3 Hgb (12.0-16.0) gm/dl Hct (35-47) % MCV (78-100) fl MCH (26-32) pg MCHC (32-36) g/dl RDW (11.5-14.0) % Plt Count (150-450) K/mm3 MPV (7.5-11.0) fl Gran % (36.0-66.0) % Eos # (Auto) (0-0.5) Absolute Lymphs (auto) (1.0-4.6) Absolute Monos (auto) (0.0-1.3) Lymphocytes % (24.0-44.0) % Monocytes % (0.0-12.0) % Eosinophils % (0.00-5.0) % Basophils % (0.0-0.4) % Absolute Granulocytes (1.4-6.9) Segmented Neutrophils (36.0-66.0) % Band Neutrophils (0.0-2.0) % Lymphocytes (Manual) (24-44) % Monocytes (Manual) (0.0-12.0) % Basophils (Manual) (0.0-1.0) % Basophils # (0-0.4) Hypochromia Platelet Estimate (NORMAL) RBC Morphology Poikilocytosis Ovalocytes D-Dimer (215-500) ng/mL Sodium (137-145) mmol/L Potassium (3.5-5.1) mmol/L Chloride (98-107) mmol/L Carbon Dioxide (22-30) mmol/L Anion Gap (5-15) MEQ/L BUN (7-17) mg/dL Creatinine (0.52-1.04) mg/dL Estimated GFR ML/MIN Glucose (74-106) mg/dL Lactic Acid (0.4-2.0) Calcium (8.4-10.2) mg/dL Ferritin (6.24-137) ng/mL Total Bilirubin (0.2-1.3) mg/dL AST (14-36) U/L ALT (0-35) U/L Alkaline Phosphatase (38-126) U/L Lactate Dehydrogenase (120-246) U/L Troponin I (0.000-0.034) ng/mL Serum Total Protein (6.3-8.2) g/dL Albumin (3.5-5.0) g/dL Urine Color (YELLOW) Urine Appearance (CLEAR) Urine pH (5-6) Ur Specific [place] (1.005-1.025) Urine Protein (Negative) Urine Ketones (NEGATIVE) Urine Blood (0-5) Ghulam/ul Urine Nitrite (NEGATIVE) Urine Bilirubin (NEGATIVE) Urine Urobilinogen (0-1) mg/dL Ur Leukocyte Esterase (NEGATIVE) Urine WBC (Auto) (0-5) /HPF Urine RBC (Auto) (0-2) /HPF U Epithel Cells (Auto) (FEW) /HPF Urine Bacteria (Auto) (NEGATIVE) /HPF Urine Mucus (Auto) (NEGATIVE) /HPF Urine Culture Reflexed (NO) Urine Glucose (NEGATIVE) mg/dL Urine HCG, Qual NEGATIVE (Negative) Monoscreen NEGATIVE (Negative) Influenza Type A Ag NEGATIVE (NEGATIVE) Influenza Type B Ag NEGATIVE (NEGATIVE) SARS-CoV-2 (PCR) (NEGATIVE) Group A Strep Antibody NOT DETECTED (NEGATIVE) Slides for Path Review 08/14/21 08/14/21 08/15/21 Range/Units 18:24 19:21 05:29 WBC 7.9 (4.0-10.5) K/mm3 RBC 3.83 L (4.1-5.4) M/mm3 Hgb 7.7 L (12.0-16.0) gm/dl Hct 25.8 L (35-47) % MCV 67.4 L (78-100) fl MCH 20.1 L (26-32) pg MCHC 29.8 L (32-36) g/dl RDW 18.1 H (11.5-14.0) % Plt Count 208 (150-450) K/mm3 MPV 11.0 (7.5-11.0) fl Gran % 88.6 H (36.0-66.0) % Eos # (Auto) 0 (0-0.5) Absolute Lymphs (auto) 0.57 L (1.0-4.6) Absolute Monos (auto) 0.32 (0.0-1.3) Lymphocytes % 7.2 L (24.0-44.0) % Monocytes % 4.1 (0.0-12.0) % Eosinophils % 0.0 (0.00-5.0) % Basophils % 0.1 (0.0-0.4) % Absolute Granulocytes 6.99 H (1.4-6.9) Segmented Neutrophils (36.0-66.0) % Band Neutrophils (0.0-2.0) % Lymphocytes (Manual) (24-44) % Monocytes (Manual) (0.0-12.0) % Basophils (Manual) (0.0-1.0) % Basophils # 0.01 (0-0.4) Hypochromia Platelet Estimate (NORMAL) RBC Morphology Poikilocytosis Ovalocytes D-Dimer (215-500) ng/mL Sodium (137-145) mmol/L Potassium (3.5-5.1) mmol/L Chloride (98-107) mmol/L Carbon Dioxide (22-30) mmol/L Anion Gap (5-15) MEQ/L BUN (7-17) mg/dL Creatinine (0.52-1.04) mg/dL Estimated GFR ML/MIN Glucose (74-106) mg/dL Lactic Acid (0.4-2.0) Calcium (8.4-10.2) mg/dL Ferritin (6.24-137) ng/mL Total Bilirubin (0.2-1.3) mg/dL AST (14-36) U/L ALT (0-35) U/L Alkaline Phosphatase (38-126) U/L Lactate Dehydrogenase (120-246) U/L Troponin I (0.000-0.034) ng/mL Serum Total Protein (6.3-8.2) g/dL Albumin (3.5-5.0) g/dL Urine Color YELLOW (YELLOW) Urine Appearance SLIGHTLY CLOUDY (CLEAR) Urine pH 6.0 (5-6) Ur Specific [place] 1.009 (1.005-1.025) Urine Protein 30 (Negative) Urine Ketones SMALL (NEGATIVE) Urine Blood SMALL (0-5) Ghulam/ul Urine Nitrite POSITIVE (NEGATIVE) Urine Bilirubin NEGATIVE (NEGATIVE) Urine Urobilinogen 2 (0-1) mg/dL Ur Leukocyte Esterase MODERATE (NEGATIVE) Urine WBC (Auto) 26-50 (0-5) /HPF Urine RBC (Auto) 0-2 (0-2) /HPF U Epithel Cells (Auto) RARE (FEW) /HPF Urine Bacteria (Auto) MANY (NEGATIVE) /HPF Urine Mucus (Auto) SLIGHT (NEGATIVE) /HPF Urine Culture Reflexed YES (NO) Urine Glucose NEGATIVE (NEGATIVE) mg/dL Urine HCG, Qual (Negative) Monoscreen (Negative) Influenza Type A Ag (NEGATIVE) Influenza Type B Ag (NEGATIVE) SARS-CoV-2 (PCR) NEGATIVE (NEGATIVE) Group A Strep Antibody (NEGATIVE) Slides for Path Review YES 08/15/21 Range/Units 05:29 WBC (4.0-10.5) K/mm3 RBC (4.1-5.4) M/mm3 Hgb (12.0-16.0) gm/dl Hct (35-47) % MCV (78-100) fl MCH (26-32) pg MCHC (32-36) g/dl RDW (11.5-14.0) % Plt Count (150-450) K/mm3 MPV (7.5-11.0) fl Gran % (36.0-66.0) % Eos # (Auto) (0-0.5) Absolute Lymphs (auto) (1.0-4.6) Absolute Monos (auto) (0.0-1.3) Lymphocytes % (24.0-44.0) % Monocytes % (0.0-12.0) % Eosinophils % (0.00-5.0) % Basophils % (0.0-0.4) % Absolute Granulocytes (1.4-6.9) Segmented Neutrophils (36.0-66.0) % Band Neutrophils (0.0-2.0) % Lymphocytes (Manual) (24-44) % Monocytes (Manual) (0.0-12.0) % Basophils (Manual) (0.0-1.0) % Basophils # (0-0.4) Hypochromia Platelet Estimate (NORMAL) RBC Morphology Poikilocytosis Ovalocytes D-Dimer (215-500) ng/mL Sodium 136 L D (137-145) mmol/L Potassium 4.1 D (3.5-5.1) mmol/L Chloride 108 H (98-107) mmol/L Carbon Dioxide 20 L (22-30) mmol/L Anion Gap 12.3 (5-15) MEQ/L BUN 14 (7-17) mg/dL Creatinine 0.68 (0.52-1.04) mg/dL Estimated GFR > 60.0 ML/MIN Glucose 121 H (74-106) mg/dL Lactic Acid (0.4-2.0) Calcium 8.4 (8.4-10.2) mg/dL Ferritin (6.24-137) ng/mL Total Bilirubin 0.60 (0.2-1.3) mg/dL AST 28 (14-36) U/L ALT 41 H (0-35) U/L Alkaline Phosphatase 47 (38-126) U/L Lactate Dehydrogenase (120-246) U/L Troponin I (0.000-0.034) ng/mL Serum Total Protein 6.5 (6.3-8.2) g/dL Albumin 3.6 (3.5-5.0) g/dL Urine Color (YELLOW) Urine Appearance (CLEAR) Urine pH (5-6) Ur Specific [place] (1.005-1.025) Urine Protein (Negative) Urine Ketones (NEGATIVE) Urine Blood (0-5) Ghulam/ul Urine Nitrite (NEGATIVE) Urine Bilirubin (NEGATIVE) Urine Urobilinogen (0-1) mg/dL Ur Leukocyte Esterase (NEGATIVE) Urine WBC (Auto) (0-5) /HPF Urine RBC (Auto) (0-2) /HPF U Epithel Cells (Auto) (FEW) /HPF Urine Bacteria (Auto) (NEGATIVE) /HPF Urine Mucus (Auto) (NEGATIVE) /HPF Urine Culture Reflexed (NO) Urine Glucose (NEGATIVE) mg/dL Urine HCG, Qual (Negative) Monoscreen (Negative) Influenza Type A Ag (NEGATIVE) Influenza Type B Ag (NEGATIVE) SARS-CoV-2 (PCR) (NEGATIVE) Group A Strep Antibody (NEGATIVE) Slides for Path Review - Radiology Impressions Radiology Exams & Impressions: Radiology Procedures Category Date Time Status CHEST 1 VIEW (PORTABLE) Stat Exams 08/14/21 15:54 Completed CHEST WITH CONTRAST [CT] Stat Exams 08/14/21 17:34 Taken Assessment/Plan (1) Symptomatic anemia Current Visit: Yes Status: Acute Assessment & Plan: Will transfuse 2 units PRBC as she is sx and hgb < 8. Code(s): D64.9 - ANEMIA, UNSPECIFIED (2) UTI (urinary tract infection) Current Visit: Yes Status: Acute Qualifiers: Urinary tract infection type: acute cystitis Hematuria presence: without hematuria Qualified Code(s): N30.00 - Acute cystitis without hematuria Assessment & Plan: On levaquin IV. Hasn't eaten in 4d; was getting ready to eat eggs, hashbrowns, and sausage but I encouraged her to eat toast instead. Code(s): N39.0 - URINARY TRACT INFECTION, SITE NOT SPECIFIED (3) Headache Current Visit: Yes Status: Acute Qualifiers: Headache type: unspecified Headache chronicity pattern: acute headache Intractability: intractable Qualified Code(s): R51.9 - Headache, unspecified Assessment & Plan: will ct head Code(s): R51.9 - HEADACHE, UNSPECIFIED (4) Leg pain Current Visit: Yes Status: Acute Qualifiers: Laterality: bilateral Qualified Code(s): M79.604 - Pain in right leg; M79.605 - Pain in left leg Assessment & Plan: u/s to r/o DVTs, particularly with her elevated d-dimer. (5) Elevated d-dimer Current Visit: Yes Status: Acute Assessment & Plan: unsure chronicity. Code(s): R79.89 - OTHER SPECIFIED ABNORMAL FINDINGS OF BLOOD CHEMISTRY (6) RUQ pain Current Visit: Yes Status: Acute Assessment & Plan: u/s RUQ, although her exam was quite benign. Code(s): R10.11 - RIGHT UPPER QUADRANT PAIN (7) Leukocytosis Current Visit: Yes Status: Resolved Qualifiers: Leukocytosis type: unspecified Qualified Code(s): D72.829 - Elevated white blood cell count, unspecified Code(s): D72.829 - ELEVATED WHITE BLOOD CELL COUNT, UNSPECIFIED (8) Mild dehydration Current Visit: Yes Status: Acute Assessment & Plan: continues. Code(s): E86.0 - DEHYDRATION (9) Menorrhagia Current Visit: Yes Status: Chronic Qualifiers: Menorrhagia type: with regular cycle Qualified Code(s): N92.0 - Excessive and frequent menstruation with regular cycle Assessment & Plan: u/s pelvis. Plan is to place her on OCP (initially progesterone only, due to elevated d-dimer) after u/s results are in. Code(s): N92.0 - EXCESSIVE AND FREQUENT MENSTRUATION WITH REGULAR CYCLE (10) Hyponatremia Current Visit: Yes Status: Acute Assessment & Plan: much improved; nearly resolved. Code(s): E87.1 - HYPO-OSMOLALITY AND HYPONATREMIA (11) Hypokalemia Current Visit: Yes Status: Acute Assessment & Plan: resolved Code(s): E87.6 - HYPOKALEMIA
[2021-08-15] MEDS: Levofloxacin 500MG/100ML D5W 500 MG/100 ML BAG IV SCH (09:32)
--- NOTE | 2021-08-15 09:49 | XRAY ---
Exam: CT of the chest with IV contrast per PE protocol from 08/14/2021. CTDI: 15.79 mGy Comparison: AP upright portable chest film from 08/14/2021. Indication: Cough 2 days; fever. Elevated d-dimer of 1863; shortness of breath; chest pain. Technique: Post-IV contrast axial images were obtained through the chest during automated injection of 100 cc of Isovue-370 contrast following the PE protocol. Reconstructed coronal and sagittal images were created and reviewed. Findings: The pulmonary arteries are adequately opacified and reveal no filling defects to suggest clot/emboli. No evidence of thoracic aortic aneurysm or dissection is seen. The heart size is normal without pericardial effusion. A 1.5 cm in diameter nonspecific lymph node overlies the right hilum on axial image #193. Otherwise, the remainder of the mediastinum and nathan appear unremarkable. The lung mendiola reveal mild posterior bibasilar dependent atelectatic changes. No air space infiltrates, suspicious soft tissue lung nodularity, pneumothorax, or pleural fluid is seen. No interstitial lung changes are seen. Within the visualized upper abdomen there appears to be a pill density within the upper aspect of the stomach lumen. The adrenal glands appear grossly unremarkable. There is some patchy low-attenuation density within the upper pole of the right kidney, and to a lesser extent, the midportion of the right kidney posterior laterally. Consider pyelonephritis. In addition, the renal pelvi are quite prominent bilaterally and may be due to bilateral hydronephrosis or a large extrarenal pelvis on the right and a moderate sized extrarenal pelvis on the left. This is only partially visualized on this study. Patchy uptake is seen within the spleen which is due to the timing of the injection relative to imaging. The spleen size is mildly prominent, but is again only partially imaged on this study. Correlate clinically. Impression: 1. I see no findings to suggest pulmonary embolism. 2. Minimal posterior bibasilar compression atelectatic changes are seen. No other acute lung disease is seen. 3. There is some suspicious patchy low attenuation within the upper pole of the right kidney, and to a lesser extent, the posterior lateral aspect of the middle third of the right kidney. Correlate clinically regarding pyelonephritis. 4. In addition, partially visualized extrarenal pelvi which are quite prominent, right greater than left. I'm not sure whether this is due to bilateral hydronephrosis or simply large bilateral extrarenal pelvi. Again, this is only partially included on this exam. 5. In addition, the spleen appears prominent and may be mildly enlarged. Correlate clinically.
--- NOTE | 2021-08-15 11:37 | XRAY ---
Exam: Gallbladder ultrasound from 08/15/2021. Indication: Right upper quadrant abdominal pain. Comparison: None. Findings: The pancreatic tail is partially obscured by adjacent bowel gas. The head and body of the pancreas appear unremarkable. The liver is of unremarkable size and demonstrates a greatest craniocaudal dimension of 16.2 cm within the right lobe on a sagittal image. No focal hepatic mass or intrahepatic biliary duct distention is seen. Normal color blood flow within the portal vein toward the liver is seen. There is moderate slow-moving intraluminal echogenic biliary sludge within the gallbladder lumen. A bright gallstone is not seen. The gallbladder wall is slightly thickened at 3.3 mm. No pericholecystic edema or fluid is seen. The proximal common bile duct measures 1.8 mm in diameter which is normal. There is no free fluid within the right upper quadrant. The right kidney measures about 12.3 cm in length. I see no evidence of hydronephrosis. Most of the fluid density medial to the right kidney on the CT of the chest with IV contrast from last evening is not included on this study. This probably represents a large extrarenal pelvis. Again, correlate clinically regarding the possibility of right-sided pyelonephritis, as parenchymal enhancement within the upper pole the right kidney appeared abnormal on the CT study. Impression: 1. A moderate amount of slow-moving intraluminal biliary sludge is seen within the gallbladder lumen. This changes position with patient positioning. 2. The gallbladder wall is slightly thickened at 3.3 mm. I cannot exclude cholecystitis. 3. No intrahepatic or extrahepatic biliary duct distention is seen. 4. I see no evidence of right-sided hydronephrosis.
--- NOTE | 2021-08-15 11:47 | XRAY ---
Exam: Transabdominal pelvic ultrasound from 08/15/2021. Comparison: None. Indication: Menorrhagia. Findings: The patient's last period was 2 weeks ago. The uterus is anteflexed measuring 9.9 cm in length, 4.7 cm in AP depth, and 5.5 cm in width. AP dimension of the endometrium measures 1.0 cm. No definite myometrial mass is seen. No endometrial fluid collection is seen. The right ovary measures 3.6 cm x 1.9 cm x 2.6 cm. The left ovary measures 3.6 cm x 2.8 cm x 2.6 cm. Normal color blood flow and Doppler signal are seen within each ovary. There appears to be a mild amount of free fluid within the cul-de-sac on the midline longitudinal images. Adjacent bowel is seen. Impression: 1. On the midline sagittal images, there appears to be a mild amount of free fluid within the cul-de-sac. This could be due to rupture of a dominant follicle or ovarian cyst. Correlate clinically to exclude PID. 2. Otherwise, the uterus and ovaries appear unremarkable.
--- NOTE | 2021-08-15 11:55 | XRAY ---
Exam: Bilateral lower extremity duplex Doppler venous ultrasound exam from 08/15/2021. Comparison: Bilateral lower extremity duplex Doppler venous ultrasound exam from 01/08/2019. Indication: 26-year-old female with bilateral leg pain. Technique: Taylor scale images, color blood flow images, and Doppler tracings without and with augmentation were obtained through the deep veins of both lower extremities. Some imaging of the greater saphenous veins within the proximal thighs was obtained as well. Findings: There is unremarkable transducer compression within advertising account representative sections of both the right and left common femoral veins, proximal, mid, and distal superficial femoral veins, popliteal veins, and distal posterior tibial veins. Normal color blood flow is seen throughout. Doppler signal within the advertising account representative deep veins appeared unremarkable without and with augmentation. Normal color blood flow was seen within the profunda femoral veins of the right and left lower extremities. Normal Doppler signal with augmentation was seen as well within the profunda femoral arteries. I also note unremarkable color blood flow and Doppler signal within the greater saphenous veins bilaterally within each proximal thigh. Impression: 1. I see no evidence of deep venous thrombosis within either lower extremity. Nor do I see evidence of superficial venous thrombosis within the greater saphenous vein of each proximal thigh. This is unchanged from 01/08/2019.
--- NOTE | 2021-08-15 12:12 | XRAY ---
Exam: CT of the head without and with IV contrast from 08/15/2021. CTDI: 53.92 mGy Comparison: None. Indication: 26-year-old female with atypical headaches. Technique: Non-IV contrast axial images were obtained through the brain. Subsequently, post IV contrast axial images were obtained after administration of 40 cc of Isovue 370 contrast material. The patient was given a diminished amount of IV contrast, as she received 100 cc of IV Isovue-370 contrast last evening for a CT chest. Reconstructed coronal and sagittal images were created and reviewed. Findings: The ventricles appear of unremarkable size. Incidentally, there is a tiny cavum septum pellucidum representing a normal variant. No focal mass effect or midline shift is seen. No acute intracranial bleed or abnormal extra-axial fluid collection is seen. The donaldson matter-white matter interfaces appear unremarkable. No low attenuation infarct is seen. On the post-IV contrast axial images, I see no focal areas of abnormal brain enhancement. Enhancement within the [place] appears grossly unremarkable. Structures of the posterior fossa appear unremarkable. The cortical sulci and basilar cisterns appear normal. The calvarium of the skull appears intact. The visualized paranasal sinuses appear clear without air-fluid levels. 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 The mastoid air cells are adequately aerated without effusion. The middle ear cavities appear grossly unremarkable. The orbits appear grossly unremarkable. Impression: 1. No acute intracranial bleed, enhancing brain lesion, or other acute intracranial abnormality is seen.
[2021-08-15 13:30] LABS: ABO TYPING A; RH TYPING POSITIVE
[2021-08-15] MEDS: NORCO 5/325 MG PO PRN ×2 (13:40→22:55)
[2021-08-15] MEDS: Zofran 4 MG/2 ML VIAL IV PRN (16:09)
[2021-08-16 00:45] LABS: AB ID Interp Anti-K
[2021-08-16 01:38] LABS: Antibody Screen POSITIVE (NEGATIVE)
[2021-08-16 02:00] LABS: CROSS MATCH (PRBC) COMPATIBLE (COMPATIBLE)
[2021-08-16] MEDS ORDERED: Sodium Chloride 0.9% 500 ML 500 ML IV ONE (02:32)
[2021-08-16] MEDS ORDERED: Sodium Chloride 0.9% 500 ML 500 ML IV SCH (02:45)
--- NOTE | 2021-08-16 08:27 | PCM.NOTE ---
Date and Time: 08/16/21822 Subjective Assessment: patient c/o chest pain and pain in both lower extremities from the knee down, hard to walk due to pain. Objective Exam General Appearance: no apparent distress, alert Respiratory Exam: normal breath sounds, lungs clear, No respiratory distress Cardiovascular Exam: regular rate/rhythm, normal heart sounds Gastrointestinal/Abdomen Exam: soft, No tenderness, No mass OBJECTIVE DATA Vital Signs: Vital Signs - 24 hr Temp Pulse Resp BP BP Pulse Ox 08/16/21 04:00 97.8 F 62 16 98/54 98 08/16/21 00:00 16 08/15/21 23:37 99.7 F 67 16 100/49 99 08/15/21 20:00 97.5 F 86 16 94/57 98 08/15/21 16:00 36.5 F 86 18 104/53 99 08/15/21 12:00 98.1 F 57 L 16 98/57 100 Pain Assessment - Last Documented Pain Intensity 0 Pain Scale Used 0-10 Pain Scale Intake and Output: Intake & Output 08/13/21 08/14/21 08/15/21 08/16/21 11:59 11:59 11:59 11:59 Intake Total 1681 1100 Balance 1681 1100 Weight 155.3 kg Lab Results: Lab Results-Last 24 Hours 08/15/21 08/15/21 Range/Units 09:55 10:09 ABO Group A Rh Factor POSITIVE Antibody Screen POSITIVE (NEGATIVE) Crossmatch COMPATIBLE COMPATIBLE (COMPATIBLE) Radiology Exams: Radiology Procedures Category Date Time Status CHEST 1 VIEW (PORTABLE) Stat Exams 08/14/21 15:54 Completed CHEST WITH CONTRAST [CT] Stat Exams 08/14/21 17:34 Completed ECHO W/2D AND DOPPLER [US] Routine Exams 08/16/21 Ordered GALLBLADDER [US] Routine Exams 08/15/21 11:02 Completed HEAD W/WO CONTRAST [CT] Urgent Exams 08/15/21 09:03 Completed PELVIC [US] Routine Exams 08/15/21 11:02 Completed VENOUS BILATERAL EXTREMITY [US] Stat Exams 08/15/21 11:02 Completed Assessment/Plan (1) Chest pain Current Visit: Yes Status: Acute Assessment & Plan: repeat troponin, cta chest negative. will get echo to r/o pericarditis Code(s): R07.9 - CHEST PAIN, UNSPECIFIED (2) Lower extremity pain, bilateral Current Visit: Yes Status: Acute Assessment & Plan: check tsh, b12 and folate, no dvt on doppler Code(s): M79.604 - PAIN IN RIGHT LEG; M79.605 - PAIN IN LEFT LEG (3) Anemia Current Visit: Yes Status: Acute Assessment & Plan: still awaiting 2nd unit of packed rbc's, etiology is unclear at this time. pelvic ultrasound negative, reported hx of menorrhagia, will exclude b12/folate due to lower ext pain Code(s): D64.9 - ANEMIA, UNSPECIFIED (4) UTI (urinary tract infection) Current Visit: Yes Status: Acute Qualifiers: Urinary tract infection type: acute cystitis Hematuria presence: without hematuria Qualified Code(s): N30.00 - Acute cystitis without hematuria Assessment & Plan: pansensitive e coli, covered with levaquin Code(s): N39.0 - URINARY TRACT INFECTION, SITE NOT SPECIFIED
[2021-08-16] MEDS: NORCO 5/325 MG PO PRN ×4 (08:34→23:37)
[2021-08-16] MEDS: Zofran 4 MG/2 ML VIAL IV PRN ×2 (11:02→20:25)
[2021-08-16] MEDS: Levofloxacin 500MG/100ML D5W 500 MG/100 ML BAG IV SCH (11:17)
[2021-08-16 11:27] LABS: Ferritin 27.4 ng/mL (6.24-137); Folate (Folic Acid) 4.16 ng/mL (2.76 - >20); TSH, 3RD Generation 5.39 mIU/L (0.47-4.68)
[2021-08-16 12:25] LABS: Hematocrit 28.2 % (35-47); Hemoglobin 8.6 gm/dl (12.0-16.0)
[2021-08-16] MEDS ORDERED: Sodium Chloride 0.9% 1000 ML 1,000 ML IV SCH (15:00)
[2021-08-17] MEDS: NORCO 5/325 MG PO PRN (06:28)
[2021-08-17 06:37] LABS: Absolute Neutrophil Ct (ANC) 3.95 (1.4-6.9); BASOPHIL % 0.2 % (0.0-0.4); Basophil (Absolute #) 0.01 (0-0.4); Eosinophil % 0.5 % (0.00-5.0); Eosinophil (Absolute #) 0.03 (0-0.5); Hematocrit 29.5 % (35-47); Hemoglobin 8.8 gm/dl (12.0-16.0); Lymphocyte (Absolute #) 1.65 (1.0-4.6); Lymphocytes % 25.8 % (24.0-44.0); Mean Cell Volume 71.3 fl (78-100); Mean Corpuscular Hemoglobin 21.3 pg (26-32); Mean Corpuscular Hgb Concent. 29.8 g/dl (32-36); Mean Platelet Volume 10.5 fl (7.5-11.0); Monocyte (Absolute #) 0.76 (0.0-1.3); Monocytes % 11.9 % (0.0-12.0); Neutrophil % 61.6 % (36.0-66.0); Platelet Count 228 K/mm3 (150-450); Red Blood Count 4.14 M/mm3 (4.1-5.4); Red Cell Distribution Width 20.9 % (11.5-14.0); White Blood Count 6.4 K/mm3 (4.0-10.5)
[2021-08-17 06:45] LABS: ANION GAP 9.3 MEQ/L (5-15); BLOOD UREA NITROGEN 11 mg/dL (7-17); CHLORIDE 108 mmol/L (98-107); Carbon Dioxide 23 mmol/L (22-30); Creatinine 1 0.81 mg/dL (0.52-1.04); EST GLOMERULAR FILTRATION RATE > 60.0 ML/MIN; Glucose 81 mg/dL (74-106); SODIUM 136 mmol/L (137-145); TROPONIN < 0.012 ng/mL (0.000-0.034)
[2021-08-17 08:38] LABS: Slide Review 1 YES
[2021-08-17 09:05] VITALS: BP 93/52; PULSE 80; O2SAT 97
--- NOTE | 2021-08-22 10:15 | ECHO ---
DATE: 08/16/2021 INDICATION: Chest pain. The M-mode, 2D, and Doppler echocardiogram including color flow Doppler shows the left ventricle is normal in size at 4.4 cm. There is no thrombus present. The septal wall thickness is normal at 0.9 cm. The left ventricular posterior wall thickness is normal at 0.7 cm. There is normal contractility of the left ventricle. The ejection fraction is calculated to be 63%. The right ventricle is grossly normal. The left atrium is normal in size at 3.1 cm. The interatrial septum is intact. The right atrium is normal. The aortic valve opens well. It is trileaflet. There is no aortic regurgitation. There is mitral valve leaflet thickening associated with a trace amount of mitral regurgitation. There is mild tricuspid regurgitation. The right ventricular systolic pressure is normal at 29 mm Hg. There is mild pulmonic regurgitation. The pulmonic valve is not well visualized. The aortic root is normal at 3.3 cm. There is no pericardial effusion present. IMPRESSION: 1. NORMAL CONTRACTILITY OF THE LEFT VENTRICLE. 2. TRACE AMOUNT OF MITRAL REGURGITATION ASSOCIATED WITH MITRAL VALVE LEAFLET THICKENING. NO DEFINITE EVIDENCE OF PROLAPSE IS NOTED. 3. MILD TRICUSPID REGURGITATION. 4. NORMAL RIGHT VENTRICULAR SYSTOLIC PRESSURE. 5. MILD PULMONIC REGURGITATION.
--- NOTE | 2021-08-22 11:12 | DS ---
DISCHARGE DIAGNOSIS: 1. ANEMIA. 2. URINARY TRACT INFECTION. 3. POSSIBLE SYNCOPAL EPISODE. BRIEF HISTORY: The patient is a 26 y/o WF who was having problems over the past few days. She was seen in [facility] Emergency Room with a fever and reports she received just a bag of fluids before she was sent home again. The patient, on admission to our facility, was found to have an Hgb initially at 8.2, but dipped down to 7.7. She also was somewhat hyponatremic at 129 on admission, but came back nicely with the fluids. She did receive 2 units of blood in our facility which brought her Hgb up to 8.8. It does appear to be a hypochromic microcytic anemia, but the iron level was found to be in the normal range. The patient does indeed have a B12 deficiency which was noted on her labs as well on the evaluation. The patient presently reports she is able to get up and move around without any difficulties and she is ready to be discharged home. Her vital signs have been stable. Her most recent blood work showed her WBC at 6,400, Hgb 8.8, and platelet count 228,000. Her BUN was 11, creatinine 0.81, sodium was at 136, potassium was normal. She reports she had been having some issues with menstrual irregularities and in fact started her cycle this morning, but otherwise is feeling alright. Her B12 level was noted to be at 187 with [id number] being normal at our lab. Her folic acid level was normal at 4.16. Ferritin was in the normal range at 27.4. The patient otherwise received IV fluids. She received a CT scan earlier which showed a moderate amount of slow moving intraluminal biliary sludge. The gallbladder wall was slightly thickened at 3.3. She had abdomen US performed which shows a mild amount of fluid in the cul-de-sac area. Otherwise, uterus and ovaries appeared to be unremarkable. Her d-dimer was slightly elevated, so she received a work-up with venous US showing no evidence of deep vein thrombosis. CT scan of the head was essentially normal. CT of the chest was negative for evidence of pulmonary embolism.at this time, again the patient is ready for discharge home. She will be on Levaquin 250 mg a day as she did end up having a positive urinary culture which was sensitive to the Levaquin which she has also been on IV in the hospital. She will receive an additional 7 days' worth of the oral antibiotics. She will see Dr. Castano in the office for follow-up within the next week. She is instructed to take a multivitamin with iron, but evaluation of her B12 deficiency will need to be undertaken either by Dr. Castano or a collector of port as an outpatient.
== END 2021-08-17 10:08 | disposition home or self-care (01) ==
LOC: ED 15:30 → MED SURG 20:34
PROVIDERS: ADMIT Family Medicine; ATTEND Family Medicine
DX: D64.9 Anemia, unspecified (principal); N39.0 Urinary tract infection, site not specified; R51.9 Headache, unspecified; R42 Dizziness and giddiness; R53.1 Weakness; R11.2 Nausea with vomiting, unspecified; R19.7 Diarrhea, unspecified; M79.604 Pain in right leg; M79.605 Pain in left leg; R79.89 Other specified abnormal findings of blood chemistry; R07.9 Chest pain, unspecified; R10.11 Right upper quadrant pain; D72.829 Elevated white blood cell count, unspecified; R06.02 Shortness of breath; E86.0 Dehydration; N92.0 Excessive and frequent menstruation with regular cycle; E87.1 Hypo-osmolality and hyponatremia; E87.6 Hypokalemia; Z20.822 Contact with and (suspected) exposure to COVID-19
CPT/HCPCS: 36000; 36415; 36430; 70470; 71045; 71260; 76705; 76856; 80048; 80053; 81001; 82607; 82728; 82746; 83540; 83605; 83615; 84443; 84484; 84703; 85014; 85018; 85025; 85379; 86308; 86850; 86870; 86900; 86901; 86922; 87040; 87077; 87086; 87186; 87400; 87651; 93005; 93306; 93970; 96360; 96361; 96365; 96374; 96375; 99285; G0378; P9016; U0003; J1100; J1956; J2405; A9270-GY